=== PATIENT | male | born 1975 | race Caucasian/White ===

== ENCOUNTER 2023-03-30 10:26 | Emergency (ER) | payer OTHER, MEDICAID, SELFPAY ==
[2023-03-30 10:40] VITALS: BP 171/110; PULSE 80; RESP 18; TEMP 36.6; O2SAT 98
--- NOTE | 2023-03-30 10:41 | ED.GENADULT ---
HPI - General Adult General Chief complaint: Back Pain/Injury Stated complaint: Back Pain/Right Arm Pain Time Seen by Provider: 03/30/23 10:43 Source: patient and RN notes reviewed Mode of arrival: ambulatory Limitations: no limitations History of Present Illness HPI narrative: 47-year-old male presents to the [facility] with low back pain and right arm pain. Low back pain started months ago. Denies any loss retention of bowel or bladder. Denies any saddle anesthesia. Walks with a normal gait. Pain does not radiate down his leg. Right arm pain started about 2 weeks ago, decreased range of motion, tenderness to the radial aspect. No swelling or bruising noted. Patient states 2 weeks ago he was picking up a box when he felt a discomfort in the lateral aspect of the right antecubital area. Denies any trauma. Related Data Home Medications Medication Instructions Recorded Confirmed citalopram 40 mg tablet 40 mg PO DAILY 03/30/23 03/30/23 hydrochlorothiazide 25 mg tablet 25 mg PO DAILY 03/30/23 03/30/23 lisinopril 40 mg tablet 40 mg PO DAILY 03/30/23 03/30/23 Allergies Allergy/AdvReac Type Severity Reaction Status Date / Time NKDA Allergy Mild Uncoded 06/02/09 19:53 Review of Systems Review of Systems: All systems reviewed & are unremarkable except as noted in HPI and below Constitutional: Constitutional: Reports no additional constitutional complaints Eyes: Eyes: Reports no additional eye complaints ENT: Reports system reviewed and no additional complaints, except as documented Cardiovascular: Cardiovascular: Reports no additional cardiovascular complaints, Denies chest pain and Denies dyspnea Respiratory: Respiratory: Reports no additional respiratory complaints, Denies chest congestion, Denies cough and Denies dyspnea Gastrointestinal: Gastrointestinal: Reports no additional gastrointestinal complaints, Denies abdominal pain, Denies nausea and Denies vomiting Musculoskeletal: Musculoskeletal: Reports as per HPI, Reports back pain and Reports arthralgias Integumentary/Breasts: Skin/Breast: Reports system reviewed and no additional complaints, except as docu Neurologic: Reports system reviewed and no additional complaints, except as documented Psychiatric: Psychiatric: Reports no additional psychiatric complaints Allergic/Immunologic: Allergic/Immunologic: Reports no additional allergic/immunologic complaints [facility] Family History Family History Other Diabetes mellitus Family history of arthritis Social History Social History Alcohol intake: current Comments At the time of my signature, I reviewed and agree with the nursing past medical, surgical, social, and family history. There is no relevant family history pertinent to the patient complaint. Exam Const: General: cooperative, healthy appearing, comfortable, no acute distress, well developed, alert and well nourished Nutritional Appearance: well nourished and obese Orientation/consciousness: patient oriented x3 Limitations: no limitations HENMT: Head: normal to inspection Ears: hearing grossly normal bilaterally and external ears normal Face/Nose/Sinus: Normal external nose present, Normal nares present, Normal nasal mucous membranes and turbinates present and normal facial exam Face and sinus: normal facial exam Mouth: Yes lip normal Eyes: General: appearance normal, both eyes and all related structures Alignment and Position: alignment normal Periorbital: periorbital findings normal Pupils: Equal, round and reactive pupils present EOM: EOMs intact bilaterally Neck: Neck: normal visual inspection, full ROM, no lymphadenopathy and no meningeal signs Chest: Chest palpation & inspection: normal inspection of the chest Resp: Effort & Inspection: normal respiratory effort and able to speak in complete sentences 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
== END 2023-03-30 11:13 | disposition home or self-care (01) ==
PROVIDERS: Emergency Provider Nurse Practitioner
DX: M77.8 Other enthesopathies, not elsewhere classified (principal); S39.012A Strain of muscle, fascia and tendon of lower back, initial encounter; X58.XXXA Exposure to other specified factors, initial encounter; I10 Essential (primary) hypertension
CPT/HCPCS: 99213; G0463

== ENCOUNTER 2024-11-07 15:09 | Emergency (ER) | payer OTHER, SELFPAY ==
--- NOTE | 2024-11-07 15:19 | ED_ITS ---
HPI - General Adult General Chief complaint: Skin/Abscess/Foreign Body Stated complaint: Skin Sore/Right Arm Source: patient Mode of arrival: ambulatory Limitations: no limitations History of Present Illness HPI narrative: 48 y/o male presented for abscess to right arm due to IVDA. Onset over 2 weeks. Pt completed a week of Bactrim 6 days ago; but denies improvement. denies decreased ROM to the arm,numbness, tinglign or weakness. Says he continues to use IV drugs but not to that area. Just prior to arrival he snorted Fentanyl, stating he will try to avoid IV use. Plans to go to rehab in 4 days. Denies n/v/d/f/c. Applied PRID to the wound. Related Data Home Medications ?Medication ?Instructions ?Recorded ?Confirmed ?Last Taken ?Type citalopram 40 mg tablet 40 mg PO DAILY 03/30/23 03/30/23 Unknown History hydrochlorothiazide 25 mg tablet 25 mg PO DAILY 03/30/23 03/30/23 Unknown History lisinopril 40 mg tablet 40 mg PO DAILY 03/30/23 03/30/23 Unknown History Allergies Allergy/AdvReac Type Severity Reaction Status Date / Time No Known Allergies Allergy Verified 11/07/24 15:25 Review of Systems 2 Review of Systems: CONSTITUTIONAL: Denies body aches, fever, chills, or sweats. EYES: Denies visual changes, redness, or discharge. ENT: Denies rhinorrhea, congestion CARDIOVASCULAR: Denies chest pain, palpitations, or edema. RESPIRATORY: Denies cough or dyspnea. GASTROINTESTINAL: Denies abdominal pain, nausea, vomiting, or diarrhea. SKIN: Reports abscess right arm MUSCULOSKELETAL: Denies back pain, joint pain, or myalgia. NEUROLOGIC: Denies headache, numbness, tingling, or weakness. [facility] Family History Family History Other Diabetes mellitus Family history of arthritis Social History Social History (Updated 11/07/24 @ 15:39 by Daphne Campos APRN) Alcohol intake: current Substance use type: IV drugs Last use: 11/07/24; snorted fentayl Comments At time of signature, I have reviewed and agree with nursing past medical, surgical, social and family history unless otherwise noted. Please see nursing chart for further information. There is no relevant family history pertinent to the presenting complaint Exam 2 Narrative: GENERAL: chronically ill-appearing EYES: conjunctivae clear, and EOMI. ENT: Mucous membranes moist. SKIN: Warm, dry. Right AC area ulnar aspect with 6cm area of induration, and 2cm raised center abscess. minimal fluctuance, serous drainage. Warm and tender. No streaking. Full ROM to the elbow. Pulses palpable and equal bilaterally. Cap refill < 3 seconds to right hand. Track larson noted to bilateral forearms. NEURO: Alert and oriented x3. Extrem: Elbow/forearm/wrist images: 1. area of induration Course Course Emergency Course: Patient is aware of diagnosis, understands and agrees to treatment plan. Anticipatory guidance given. Patient agrees to follow-up as directed and is aware of reasons to seek care at the emergency department. Portions of this record may have been created with voice recognition software Level of Care: Express Care Visit Vital Signs Vital signs: Vital Signs Temperature 97.7 F 11/07/24 15:51 Pulse Rate 98 11/07/24 15:51 Respiratory Rate 16 11/07/24 15:51 Blood Pressure 163/100 H 11/07/24 15:51 Pulse Oximetry 100 11/07/24 15:51 Oxygen Delivery Room Air 11/07/24 15:51 Temperature 97.7 F 11/07/24 15:51 Pulse Rate 98 11/07/24 15:51 Respiratory Rate 16 11/07/24 15:51 Blood Pressure 163/100 H 11/07/24 15:51 Pulse Oximetry 100 11/07/24 15:51 Oxygen Delivery Room Air 11/07/24 15:51 Reviewed Procedures Abscess I/D right arm: Abcess I&D Additional Comments: Attempted needle aspiration to the fluctuant area of the Right AC. Site cleansed with iodine. Puncture site made with #18g needle to area of most fluctuance. Blood was noted. No purulent drainage noted. Pt tolerated well. No complications. Dressing and coban applied per RN. Medical Decision Making MDM Narrative Medical decision making narrative: Discussed physical exam findings c/w abscess to Right AC due to IVDA. No purulent drainage with needle aspiration. Pt failed outpt abx therapy and is advised ER transfer. He refuses stating [place] [address] and does not have time to wait. will send abx at this time. The patient is AA&Ox3. The patient has demonstrated concrete thinking/reasoning, has maintained an patient safety tech/reasonable conversation, appears to have intact insight/judgment/reason and therefore has capacity to make decisions. Given the patients presentation, we communicated our concern for cellulitis/abscess to right arm in laymans terms. The patient verbalized an understanding. The patient is aware the evaluation is incomplete & many troublesome conditions have not been r/o. We have discussed the need for further ED evaluation. We have discussed the range of possible dx, potential testing & treatment options.Our discussions included the potential outcomes of leaving AMA, including worsening of their condition, becoming permanently disabled/in pain/critically ill, or . Despite these efforts, we were unable to convince the pt to go to the ER. We have attempted to offer tx/rx/guidance for any dangerous conditions which are most likely and/or dangerous. We have answered all questions and have implored the patient to go to ER [facility] to complete the w/u. A staff member witnessed the patient consenting to AMA. Differential Diagnosis Differential Diagnosis: Viral exanthema, contact dermatitis, allergic dermatitis, eczema, urticaria, insect bites, impetigo, tinea, folliculitis Vital Signs Vital Signs: Vital Signs Temperature 97.7 F 11/07/24 15:51 Pulse Rate 98 11/07/24 15:51 Respiratory Rate 16 11/07/24 15:51 Blood Pressure 163/100 H 11/07/24 15:51 Pulse Oximetry 100 11/07/24 15:51 Oxygen Delivery Room Air 11/07/24 15:51 Temperature 97.7 F 11/07/24 15:51 Pulse Rate 98 11/07/24 15:51 Respiratory Rate 16 11/07/24 15:51 Blood Pressure 163/100 H 11/07/24 15:51 Pulse Oximetry 100 11/07/24 15:51 Oxygen Delivery Room Air 11/07/24 15:51 Discharge Plan Discharge Clinical Impression: Cellulitis of arm, right Patient Disposition: Left Against Medical Advice Condition: Stable Instructions: Cellulitis (ED) Additional Instructions: You were advised to transfer to the ER and you decline at this time. You were made aware of the risk of refusal including worsening of your condition, permanent disability, and . Report to the ER immediately by calling 911 for any worsening symptoms. Keep the area clean and dry - cleanse with warm water and mild soap and allow to fully dry. Ok to apply neosporin to the site Keep it covered if draining Tylenol for pain Watch for worsening symptoms including pain, redness, swelling, streaking, pus/drainage, fever. Go to the ER with any of these symptoms or concerns. Follow up with primary care provider Patient Language: Macanese Prescriptions: New cephalexin 500 mg capsule 500 mg PO Q6H 7 Days Qty: 28 0RF doxycycline hyclate 100 mg tablet 100 mg PO BID 7 Days Qty: 14 0RF No Action citalopram 40 mg tablet 40 mg PO DAILY hydrochlorothiazide 25 mg Tablet 25 mg PO DAILY lisinopril 40 mg Tablet 40 mg PO DAILY methylprednisolone [Medrol (Fahad)] 4 mg tablets,dose pack See Rx Instructions PO .COMPLEX Qty: 21 0RF Rx Instructions: orally per package directions baclofen 10 mg tablet 10 mg PO TID PRN (Reason: muscle pain) Qty: 10 0RF Follow-up/Referrals: PHYSICIAN,PHYSICAL SCIENCE AIDE [Primary Care Provider] - Time of Disposition: 15:47
[2024-11-07 15:51] VITALS: BP 163/100; PULSE 98; RESP 16; TEMP 36.5; O2SAT 100
--- OUTSIDE RECORDS SUMMARY | 2024-11-07 16:21 | XMS_ITS | Patient Health Summary ---
Author Organization [facility] Address [address] [place] [address] Care Team Providers Care Bulk Mail Clerk Name Role Phone Unavailable Primary Care Provider Unavailabl e Note from [facility],non-owned Affiliates and Associated Physician Practices is amultiple site organization consisting of ambulatory clinics and hospital sitesin [place], [place] and [place]. This disclosure is being madepursuant to the Care Everywhere program and may not contain all information available regarding this patient. Last updated 18.[facility] Allergies No known active allergies Medications * Be aware that medications may not be up to date on this document. Alwaysverify current medications with the patient. * dextromethorphan-guaiFENesin (ROBITUSSIN COUGH/CHEST DM MAX) 10-200 MG/5ML liquid(Started 06/24/2016) Take 5 mL by mouth every 6 hours as needed for Cough Reasons: Cough Social History Tobacco Use Types Packs/Day Years Used Date Smoking Tobacco: Every Day Sex and Gender Information Value Date Recorded Sex Assigned at Not on file Gender Identity Not on file Sexual Orientation Not on file Last Filed Vital Signs Vital Sign Reading Time Taken Comments Blood Pressure 134/90 06/24/2016 5:04 PM CDT Pulse 77 06/24/2016 5:04 PM CDT Temperature 36.4 C (97.6 F) 06/24/2016 5:04 PM CDT Respiratory Rate 18 06/24/2016 5:04 PM CDT Oxygen Saturation 96% 06/24/2016 5:04 PM CDT Inhaled Oxygen Concentration - - Weight 131.5 kg (290 lb) 06/24/2016 5:04 PM CDT Height 182.9 cm (6') 06/24/2016 5:04 PM CDT Body Mass Index 39.33 06/24/2016 5:04 PM CDT Procedures * SARS-COV-2 (COVID-19) IN HOUSE(Performed 02/01/2020) * INFLUENZA A+B - POINT OF CARE (AMB)(Performed 06/24/2016) Performed for Acute nasopharyngitis (common cold) * STREP A SCREEN - POINT OF CARE (AMB) STL(Performed 06/24/2016) Performed for Acute nasopharyngitis (common cold) Results * SARS-COV-2 (COVID-19) IN HOUSE (02/01/2020 1:37 AM CDT) COVID-19 PCR Not detected Not detected, Invalid 02/01/2020 10:46 PM CDT [facility] Microbiology SPECIMEN FROM NASOPHARYNGEAL STRUCTURE / Unknown Collection / Unknown 02/01/2020 1:37 AM CDT 02/01/2020 12:32 PM CDT Narrative [facility] - 02/01/2020 10:46 PM CDT This Real Time RT-PCR assay was developed and its performance characteristics determined by [facility]. This test has been authorized by the Food and Drug administration (FDA)under an Emergency Use Authorization (EUA). This test has been validated in accordance with the FDA's guidance document Policy for Diagnostic Testing in Laboratories Certified to perform High Complexity Testing under CLIA prior to Emergency Use Authorization for Coronavirus Disease-2019 during the Public Health Emergency issued on November 02, 2019. FDA independent review of this validation is pending. This test is only authorized for the duration of time the declaration that circumstances exist justifying the authorization of emergency use of in vitro diagnostic tests for detection of SARS-CoV-2 virus and/or diagnosis of COVID-19 infection under section 564(b)(1) of the Act, 21 U.S.C 360bbb-3 (b)(1), unless the authorization is terminated or revoked sooner. Thomas Berger MD LAB - MICROBIOLOGY ORDERABLES [facility] [address] [place] [address], [facility] [phone] * STREP A SCREEN - POINT OF CARE (AMB) STL (06/24/2016) Strep A Rapid POCT Negative Negative Strep A Internal Control Present Lot # [id number] Expiration Date 01/06/2018 Throat ENTIRE THROAT (SURFACE REGION OF NECK) / Unknown 06/24/2016 Elena Cunha APRN-[facility] - POINT OF CA RE ORDERABLES * INFLUENZA A+B - POINT OF CARE (AMB) (06/24/2016) Influenza A Antigen Rapid Negative Negative Influenza B Antigen Rapid Negative Negative Influenza Internal Control negative NEGATIVE - POSITIVE Influenza Lot Number [id number] Influenza Expiration Date ,017 Other NASOPHARYNGEAL SWAB / Unknown 06/24/2016 Elena Cunha APRN-[facility] - POINT OF CA RE ORDERABLES
--- OUTSIDE RECORDS SUMMARY | 2024-11-07 16:21 | XMS_ITS | Referral Summary ---
Author Organization [facility] Address [address] [place] [address] Care Team Providers Care Customer Contact Specialist Name Role Phone No, Physician Primary Care Provider [phone] Allergies No known active allergies Medications ketorolac (TORADOL) 10 mg tablet take 1 tablet by oral route every 6 hours as needed for up to 5 days total use 0 0 7 Active albuterol HFA (PROVENTIL HFA) 90 mcg/actuation inhaler inhale 2 puff by inhalation route every 4 - 6 hours as needed 0 Inhaler 0 7 Active naproxen (NAPROSYN,ALEVE ) 500 mg tablet take 1 tablet by oral route 2 times every day with food 0 0 7 Active dexamethasone (dexamethasone) 1 mg/mL drops take 0.5 milliliter by oral route 2 times every day 0 0 7 Active HYDROcodone-ciara taminophen (NORCO) 5-325 mg per tabletIndicatio ns:written Rx given to pt at appt today Take 1 tablet by mouth every 6 (six) hours as needed (for pain). 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 Gender Identity Not on file Sexual Orientation Not on file Last Filed Vital Signs Vital Sign Reading Time Taken Comments Blood Pressure 140/88 06/30/2017 11:08 AM CDT Pulse 76 06/30/2017 11:08 AM CDT Temperature - - Respiratory Rate - - Oxygen Saturation 92% 06/25/2012 8:00 AM CDT Inhaled Oxygen Concentration - - Weight 113.4 kg (250 lb) 06/30/2017 11:08 AM CDT Height 182.9 cm (6') 06/30/2017 11:08 AM CDT Body Mass Index 33.91 06/30/2017 11:08 AM CDT Plan of Treatment Not on file Insurance [facility] Care Teams Customer Contact Specialist Relationship Specialty Start Date End Date No, Physician PCP - General 02/27/17
--- OUTSIDE RECORDS SUMMARY | 2024-11-07 16:21 | XMS_ITS | Continuity of Care Document ---
Author Organization [facility] Address [address] [facility] [place] [address] Phone Care Team Providers Care Software Administrator Name Role Phone Jim Asher MD Unavailable Unavailable Allergies, Adverse Reactions, Alerts Substance Reaction Status Criticality No Known Allergies Active No Inform ation Medications Medication Instructions Dosage Effective Dates (start - stop) Status Comments ibuprofen 800 mg tablet take 1 tablet (800MG) by oral route every 6 - 8 hours with food 800 MG - Active Vicodin 5 mg-500 mg tablet take 1 tablet by oral route every 4 - 6 hours as needed for pain - Active avoid driving or operate machines, max 3/24 hour Procedures Procedure Date OFFICE/OUTPATIENT VISIT, EST OFFICE/OUTPATIENT VISIT, EST Advance Directives Directive Yes / No Effective Date File Name No Information Encounters Encounter Description Practice Location Reason(s) For Visit Diagnoses Date Provider Providers Copied on Encounter OFFICE/OUTPA TIENT VISIT, EST [facility], [address], [id number], [place] tel:[phone] [facility] foot pain (chief complaint) Dietary surveillance and counselingFracture of unspecified bone(s) of foot (except toes), closed [address] [place], [id number] , [place]. tel:[phone] Referring Provider: Jim Asher [address] [place], [place], [id number]. tel:[phone] OFFICE/OUTPA TIENT VISIT, [facility], [address] [place], [id number], tel:[phone] [facility] foot pain (chief complaint) Dietary surveillance and counselingPain in joint involving ankle and footDECREASED LIBIDO 0 [address], [address], [place], [place], [id number] , [place]. tel:[phone] Referring Provider: Jim Asher, [address] [facility] [address], [place], [place], [id number]. tel:[phone] Family History Family Member Type Diagnosis Age At Onset Mother Problem (finding) Hyperlipidemia Father Problem (finding) Diabetes mellitus Mother Problem (finding) Hypertension Father Problem (finding) Hyperlipidemia Father Problem (finding) Hypertension Payers Payer name Insurance type Covered green party ID Authoriza tion(s) No Information Social History Type Description Quantity Date Captured Comments Alcohol Use Details Caffeine Use Details Unknown Tobacco Use Status No Information Smoking Status Current every day smoker Smoking Tobacco Use Details Cigarette: No Details Available Cigarette: No Details Available Sex Male Vital Signs Date / Time: Height Weight BMI Pulse Rate Blood Pressure Temperature Respiratory Rate Body Surface Area Head Circumference BMI percentile Pulse Ox Inhaled Ox 12:38 PM 72.00 in 315.50 lbs 42.7 8 kg/m eter (2) 88 /min 132/88 mm[Hg] 97.6 F 17 /min Chief Complaint And Reason For Visit From encounter dated '06/21/2012 11:30'. foot pain (chief complaint) Plan Of Treatment Date Type Action Status Goal Tobacco cessation counseling completed Goal Tobacco cessation counseling completed Referral Ordered: Referral: Ortho Surg. Evaluate and treat. ordered Referral Ordered: FOOT XRAY, TWO VIEW Right foot ordered History Of Present Illness Encounter Date Complaint History Of Prese nt Illness No Information Instructions Date Instruction Additional Infor mation Dietary counseling Related to Di etary surveillance counseling Decrease caloric intake Related to Dietary surveillance counseling Dietary counseling Related to Di etary surveillance counseling Decrease caloric intake Related to Dietary surveillance counseling Assessments Type Assessment Date No Information Mental Status Date Cognitive Assessment Orientation - Winn ed to time, place, person, situation.
--- OUTSIDE RECORDS SUMMARY | 2024-11-07 16:21 | XMS_ITS | Referral Summary ---
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 This disclosure is being madepursuant to the Care Everywhere program and may not contain all information available regarding this patient. Last updated 18.[facility] Allergies No known active allergies Medications * Be aware that medications may not be up to date on this document. Alwaysverify current medications with the patient. Medication Sig Dispensed Refills Start Date End Date Status dextromethorphan-guaiF ENesin (ROBITUSSIN COUGH/CHEST DM MAX) 10-200 MG/5ML liquidIndications:Coug h Take 5 mL by mouth every 6 hours as needed for Cough Reasons: Cough 236 mL 06/24/2016 Active Social History Tobacco Use Types Packs/Day Years [...] Mass Index 39.33 06/24/2016 5:04 PM CDT Plan of Treatment Not on file
--- OUTSIDE RECORDS SUMMARY | 2024-11-07 16:21 | XMS_ITS | Clinical Summary ---
Author Organization [facility] Address [address] [place] [id number] Care Team Providers Care Waiter/Waitress Tourist Class Name Role Phone Karl Patel MD Unavailable [phone] Henrique Tijerina MD Unavailable Unavailable Jan Lynch MD Unavailable Cecil Hart Primary Care Provider Allergies Active Allergy Reactions Criticality Noted Date Comments Penicillins Hives Medium 12/14/2018 Medications hydroCHLOROthiazid e 25 MG TabletIndications: Hypertension, essential Take 1 Tablet by mouth daily. 90 Tablet 1 05/19/20 23 Active Additional Information Patient not taking.Reported on 03/24/2024 Lisinopril 30 MG TabletIndications: Hypertension, essential Take 1 Tablet by mouth daily. 90 Tablet 1 05/19/20 23 Active Additional Information Patient not taking.Reported on 03/24/2024 atorvastatin (LIPITOR) 20 MG TabletIndications: Hyperlipidemia, unspecified hyperlipidemia type Take 1 Tablet by mouth daily. 90 Tablet 3 05/30/20 23 Active Additional Information Patient not taking.Reported on 03/24/2024 meloxicam (MOBIC) 15 MG TabletIndications: Toe deformity, right Take 1 Tablet by mouth daily. 90 Tablet 3 09/28/19 24 Active Additional Information Patient not taking.Reported on 03/24/2024 traMADol (ULTRAM) 50 MG TabletIndications: History of hepatitis C,LLQ pain,Non-recurrent unilateral inguinal hernia without obstruction or gangrene,FH: diabetes mellitus Take 1 Tablet by mouth every 12 hours as needed for Severe pain. 20 Tablet 11/27/19 24 Active Additional Information Patient not taking.Reported on 03/24/2024 methylPREDNISolone (MEDROL) 4 MG Tablet 6 tabs day 1, 5 tabs day 2, 4 tabs day 3, 3 tabs day 4, 2 tabs day 5, 1 tab day 6 21 Tablet 03/24/20 24 Active sulfamethoxazole-t rimethoprim DS (BACTRIM DS, SEPTRA DS) 800-160 MG TabletIndications: Abscess of arm, right Take 1 Tablet by mouth 2 times daily for 7 days. 14 Tablet 10/28/19 25 025 Active Problems Problem Noted Date Diagnosed Date History of hepatitis C 05/19/2023 Anxiety and depression 09/25/2017 Mild intermittent asthma without complication Hyperlipidemia 09/04/2016 Hypertension, essential Resolved Problems Problem Noted Date Diagnosed Date Resolved Date Abscess of right arm 10/08/2017 019 Rhabdomyolysis 01/27/2017 12/05/2018 Dehydration 01/27/2017 12/05/2018 Headache(784.0) 01/27/2017 08/23/2017 Mononeuritis lower limb 06/20/2016 04/0 11/2018 Pain in right foot 06/20/2016 9 Hallux valgus 06/20/2016 12/05/2018 Encounters Date Type Department Care Team Description 10/28/2024 2:00 PM PASTE WORKER Urgent Care Visit [facility] [address] [place] [address] Celeste Kimble, AUTOMOBILE ENGINE ASSEMBLER, CHILD CARE ATTENDANT Abscess of arm, right (Primary Dx) Discharge Disposition: Discharged to home or Selfcare 10/28/2024 Travel from Last 3 Months Immunizations Immunization Administration Dates Next Due Covid-19, Mrna, Lnp-s, Bival ent, Moderna, 50 Mcg or 25 mcg dose 09/07/2022 Covid-19, Mrna, Lnp-s, PF, 5 0 mcg/0.25 mL dose (Moderna) 08/10/2021 Covid-19, Mrna, Lnp-s, Pf, 1 00 Mcg Or 50 Mcg Dose (MODERNA) 08/15/2021,11/30/2020,11/02/2020 Influenza Vaccine, Quadrivalent, PF 08/23/2017 Pneumococcal Vaccine Adult - 23 Valent 9 TDAP Vaccine 02/20/2017 Family History Medical History Relation Name Comments Diabetes Father Cancer Maternal Aunt Cancer Maternal Grandmother Asthma Mother Chronic Obstructive Pulmonary Disease Mother Hypertension Mother Relation Name Status Comments Father Alive Maternal Aunt Maternal Grandmother Mother Alive Social History Tobacco Use Types Packs/Day Years Used Date Smoking Tobacco: Every Day Cigarettes 1 35 Smokeless Tobacco: Never Tobacco Cessation:Ready to Q uit: Not Asked; Counseling Given: Not Answered Alcohol Use Standard Drinks/Week Comments No 0 (1 standard drink = 0.6 oz pur e alcohol) PHQ-2 Answer Date Recorded PHQ-2 Score 1 05/13/2019 Sexually Active Control Partners Comments Yes Sex and Gender Information Value Date Recorded Sex Assigned at Not on file Legal Sex Male 10:44 PM CDT Gender Identity Not on file Sexual Orientation Not on file Occupation Industry Job Start Date Job End Date unemployed Not on file 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 on file 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 file Not on file Not on file Last Filed Vital Signs Vital Sign Reading Time Taken Comments Blood Pressure 164/94 10/28/2024 2:53 PM PASTE WORKER Pulse 85 10/28/2024 2:53 PM PASTE WORKER Temperature 36.5 C (97.7 F) 10/28/2024 2:53 PM PASTE WORKER Respiratory Rate 18 10/28/2024 2:53 PM PASTE WORKER Oxygen Saturation 99% 10/28/2024 2:53 PM PASTE WORKER Inhaled Oxygen Concentration - - Weight 132.9 kg (293 lb) 09/28/2023 10:57 AM PASTE WORKER Height 185.4 cm (6' 1 ) 05/22/2023 3:15 PM CDT Body Mass Index 38.66 05/22/2023 3:15 PM CDT Plan of Treatment Health Maintenance Due Date Last Done Comments Hepatitis B Immunization (1 of 3 - 19+ 3-dose series) 1992 Colonoscopy 2018 Colorectal Cancer Screening 2018 Pneumococcal Immunization (50+ years) (2 of 2 - PCV) 12/06/2019 12/05/2018 Cologuard 11/27/2023 Immunochemical Fecal Occult Blood 11/27/2023 Lung Cancer Screening 11/27/2023 Zoster Immunization (1 of 2) 11/27/2023 Influenza Immunization (#1) 2024 08/23/2017 SARS-COV-2 Immunization ( season) 2024 09/07/2022, 08/15/2021, 08/10/2021, Additional history exists Td Immunization Every 10 Years (Adults With 1 Tdap) 02/20/2027 02/20/2017 Respiratory Syncytial Virus (RSV) Immunization (Adult) (1 - 1-dose 75+ series) 2048 Pneumococcal Immunization Combined Discontinued 12/05/2018 Meningococcal Immunization (ACWY) Aged Out No longer eligible based on patient's age to complete this topic Rotavirus Immunization Aged Out No lo nger eligible based on patient's age to complete this topic Insurance MEDICAID [place] Care Teams Waiter/Waitress Tourist Class Relationship Specialty Start Date End Date Cecil Hart PAC [address] [place] [id number] PCP - General Physician Carbon Printer 05/19/23 Karl Patel MD [address] [place] [address] Consulting Physician Orthopaedic Surgery 08/23/17 Henrique Tijerina MD [address] [place] [address] Consulting Physician Addiction Medicine 12/05/18 Jan Lynch MD [address] [facility] [place] [address] Consulting Physician General Surgery 05/15/23
--- OUTSIDE RECORDS SUMMARY | 2024-11-07 16:21 | XMS_ITS | Encounter Summary ---
Author Organization [facility] Address [address] [place] [address] Care Team Providers Care New Accounts Banking Representative Name Role Phone Unavailable Primary Care Provider Unavailabl e Encounter Details Date Type Department Care Team (Late st Contact Info) Description 02/01/2020 Lab Requisition [facility] [address] [place] [address] Thomas Berger MD Social History Tobacco Use Types Packs/Day Years Used Date Smoking Tobacco: Every Day Sex and Gender Information Value Date Recorded Sex Assigned at Not on file Gender Identity Not on file Sexual Orientation Not on file documented as of this encounter Plan of Treatment Not on file documented as of this encounter Procedures Procedure Name Priority Date/Time Associated Diagnosis Comments SARS-COV-2 (COVID-19) IN HOUSE Routine 02/01/2020 1:37 AM CDT documented in this encounter Results * SARS-COV-2 (COVID-19) IN HOUSE (02/01/2020 1:37 AM CDT) COVID-19 PCR Not detected Not detected, Invalid 02/01/2020 10:46 PM CDT [facility] Microbiology SPECIMEN FROM NASOPHARYNGEAL STRUCTURE / Unknown Collection / Unknown 02/01/2020 1:37 AM CDT 02/01/2020 12:32 PM CDT Narrative [facility] - 02/01/2020 10:46 PM CDT This Real Time RT-PCR assay was developed and its performance characteristics determined by [facility]. This test has been authorized [...] Thomas Berger MD LAB - MICROBIOLOGY ORDERABLES [facility] [address] [place] [address], [facility] [phone] documented in this encounter Visit Diagnoses Not on filedocumented in this encounter Additional Health Concerns Infection Onset Date Last Indicated Resolved Time COVID-19 Under Investigation 02/01/2020 02/01/2020 02/01/2020 10:46 PM CDT documented as of this encounter
--- OUTSIDE RECORDS SUMMARY | 2024-11-07 16:21 | XMS_ITS | Clinical Summary ---
Author Organization [facility] Address [address] [place] [address] Care Team Providers Care Log Handling Equipment Operator Name Role Phone No, Physician Primary Care Provider [phone] Allergies No known active allergies Medications ketorolac [...] pain Current smoker 11/11/2016 Overview (01/27/2017): Smoker Medical History Medical History Date Comments Hx Other Medical 12-06-16 Right AC resection with anterior acromiopla; Comments: QUINCY 12/19/2016 - Family History Medical History Relation Name Comments Other Other Family history of diabetes and hypertension.; Relation Name Status Comments Other Social History Tobacco Use Types Packs/Day Years Used Date Smoking Tobacco: Every Day Smokeless Tobacco: Never Sex and Gender Information Value Date Recorded Sex Assigned at Not on file Legal Sex 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
--- OUTSIDE RECORDS SUMMARY | 2024-11-07 16:21 | XMS_ITS | Clinical Summary ---
Author Organization [facility] Address [address] [place] [address] Care Team Providers Care Aluminum Molding Machine Operator Name Role Phone Unavailable Primary Care Provider Unavailabl e Source Comments [facility],non-owned Affiliates and Associated Physician Practices is amultiple site organization consisting of ambulatory clinics and hospital sitesin [place], [place], [place] and [place]. This disclosure is being madepursuant to the Care Everywhere program and may not contain all information available regarding this patient. Last updated 18.[facility] [employer] Allergies No known active allergies Medications * [...] 06/24/2016 5:04 PM CDT Plan of Treatment Health Maintenance Due Date Last Done Comments COLOGUARD (AGES 45-75) - COL ON CA SCREENING 1973 COLON MONITORING 1973 COLONOSCOPY - COLON CA SCREENING 1973 CT COLONOGRAPHY - COLON CA SCREENING 1973 Colorectal Cancer Screening 1973 FIT - COLON CA SCREENING 1973 FLEX SIG - COLON CA SCREENING 1973 LIPID TESTING 1973 HIV SCREENING 1988 HEPATITIS C SCREENING 11/22/1991 DTAP/TDAP/TD VACCINES (1 - Tdap) 1992 HEPATITIS B VACCINE (1 of 3 - 19+ 3-dose series) 1992 PNEUMOCOCCAL VACCINE (1 of 2 - PCV) 1992 PNEUMOCOCCAL VACCINE 50+ (1 of 1 - PCV) 11/27/2023 ZOSTER VACCINE (1 of 2) 11/27/2023 COVID-19 VACCINE (1 - 2023-2 5 season) 2024 INFLUENZA VACCINE (#1) 2024 08/23/2017 DEPRESSION SCREENING 09/04/2024 HIB VACCINE Aged Out No longer eligi ble based on patient's age to complete this topic HPV VACCINE Aged Out No longer eligi ble based on patient's age to complete this topic MENINGOCOCCAL (Group B) VACCINE Aged Out No longer eligible based on patient's age to complete this topic MENINGOCOCCAL VACCINE Aged Out No eduardo paco eligible based on patient's age to complete this topic
--- OUTSIDE RECORDS SUMMARY | 2024-11-07 16:26 | XMS_ITS | Continuity of Care Document ---
Author Organization [facility] Address [address] [facility] [place] [address] Phone Care Team Providers Care Donation Specialist Name Role Phone Jim Asher MD Unavailable Unavailable Allergies, Adverse Reactions, Alerts Substance Reaction Status Criticality No Known Allergies Active No Inform ation Medications Medication Instructions Dosage Effective Dates (start - stop) Status Comments Vicodin 5 mg-500 mg tablet take 1 tablet by oral route every 4 - 6 hours as needed for pain - Active avoid driving or operate machines, max 3/24 hour ibuprofen 800 mg tablet take 1 tablet (800MG) by oral route every 6 - 8 hours with food 800 MG - Active Procedures Procedure Date OFFICE/OUTPATIENT VISIT, EST OFFICE/OUTPATIENT VISIT, EST Advance Directives Directive Yes / No Effective Date File Name No Information Encounters Encounter Description Practice Location Reason(s) For Visit Diagnoses Date Provider Providers Copied on Encounter OFFICE/OUTPA TIENT VISIT, EST [facility], [facility] [place], [id number], [place] tel:[phone] [facility] foot pain (chief complaint) Dietary surveillance and counselingFracture of unspecified bone(s) of foot (except toes), closed [address], [place], [id number] , [place]. tel:[phone] Referring Provider: Jim Asher [address], [place], [id number]. tel:[phone] OFFICE/OUTPA TIENT VISIT, [facility], [address] [place], [place], [id number], tel:[phone] [facility] foot pain (chief complaint) Dietary surveillance and counselingPain in joint involving ankle and footDECREASED LIBIDO 0 [address], [place], [place], [id number] , [place]. tel:[phone] Referring Provider: Jim Asher, [address] [facility] [address], [place], [place], [id number]. tel:[phone] Family History Family Member Type Diagnosis Age At Onset Mother Problem (finding) Hyperlipidemia Father Problem (finding) Diabetes mellitus Mother Problem (finding) Hypertension Father Problem (finding) Hyperlipidemia Father Problem (finding) Hypertension Payers Payer name Insurance type Covered democrat ID Authoriza tion(s) No Information Social History [...] Mental Status Date Cognitive Assessment Orientation - [place] ed to time, place, person, situation.
== END 2024-11-07 15:54 | disposition left against medical advice (07) ==
PROVIDERS: Emergency Provider Nurse Practitioner Family
DX: T80.29XA Infection following other infusion, transfusion and therapeutic injection, initial encounter (principal); L03.113 Cellulitis of right upper limb; F11.10 Opioid abuse, uncomplicated
CPT/HCPCS: 10060; 99213; G0463

== ENCOUNTER 2024-11-19 09:49 | Emergency (ER) | payer OTHER, SELFPAY ==
[2024-11-19] VITALS (7 sets, daily range): BP systolic 128–158; BP diastolic 77–98; PULSE 56–96; RESP 14–20; TEMP 36.6; O2SAT 96–100
--- NOTE | ~2024-11-19 | XR_ITS ---
XR chest 2V Ordering provider: Verna Cuenca History: 48 years Male with . CHEST PAIN RT SIDE RADIATES DOWN RT ARM, ARM NUMB 3 DAYS . Comparison: December 09, 2011 FINDINGS: MEDIASTINUM: The cardiac silhouette is not enlarged. LUNGS: No infiltrates, effusions or pneumothorax. OTHER: No free air under the diaphragm. Degenerative changes of the spine. IMPRESSION: No acute cardiopulmonary pathology. Reviewed, dictated and finalized at location A.
--- NOTE | ~2024-11-19 | CT_ITS ---
CTA chest PE protocol Ordering provider: Hitesh Ann MD History: 48 years Male with . Chest pain, IV drug use . Comparison: None. Technique: CT angiogram chest was performed following timed intravenous injection of contrast. Thin s lice axial images and reformatted coronal images were obtained. Three dimensional reformatted images of the chest were also obtained using a [employer] workstation. . Automated exposure control and iterati ve reconstruction technique were employed. The dose-length product was 537.04 mGy-cm. 100 mL Omnipaqu e 350 was given IV. Findings: PULMONARY ARTERIES: No pulmonary embolus. VISUALIZED THORACIC INLET: Normal. MEDIASTINUM: Aorta/coronary arteries: Mild atheromatous disease. Heart/other: The heart is not enlarged. Lymph nodes: No mediastinal or hilar adenopathy. LUNGS: No pulmonary nodules or masses. No infiltrates or effusions. No pneumothorax. Dependent atelectatic c hanges. 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 There evaluation advised. Otherwise, the visualized upper abdomen is normal. MUSCULOSKELETAL: Soft tissues: The superficial soft tissues are normal. Bones: Age appropriate degenerative changes of the spine. IMPRESSION: 1. No pulmonary embolism. 2. No acute cardiopulmonary pathology. 3. 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 Further evaluation advised. Reviewed, dictated and finalized at location A. IMPRESSION: 1. No pulmonary embolism. 2. No acute cardiopulmonary pathology. 3. 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 Furth er evaluation advised.
--- NOTE | ~2024-11-19 | US_ITS ---
RIGHT UPPER EXTREMITY VENOUS ULTRASOUND Ordering provider: Hitesh Ann MD History: . Evaluate for DVT of right UE, iv drug use . Comparison: None. FINDINGS: --JUGULAR: Patent and free of thrombus. Normal compressibility, phasic flow and augmentation. --SUBCLAVIAN: Patent and free of thrombus. Normal compressibility, phasic flow and augmentation. --AXILLARY: Patent and free of thrombus. Normal compressibility, phasic flow and augmentation. --BRACHIAL: Patent and free of thrombus. Normal compressibility, phasic flow and augmentation. --CEPHALIC: Patent and free of thrombus. Normal compressibility, phasic flow and augmentation. --BASILIC: Patent and free of thrombus. Normal compressibility, phasic flow and augmentation. --RADIAL: Patent and free of thrombus. Normal compressibility, phasic flow and augmentation. --ULNAR: Patent and free of thrombus. Normal compressibility, phasic flow and augmentation. IMPRESSION: Negative right upper extremity venous US. No deep vein thrombosis. Reviewed, dictated and finalized at location A.
--- NOTE | 2024-11-19 09:50 | ECG_ITS ---
Test Date: 2024-11-19 10:14:41 Measurements Intervals [place] Rate: 74 P: 95 W[place]: 167 QRS: 21 QRSD: 86 T: 48 QT: 396 QTc: 442 Interpretive Statements SINUS RHYTHM NORMAL ECG No previous ECG available for comparison Electronically Signed On 11-20-2024 12:03:10 CDT by Tani Nice M.D.
[2024-11-19 10:38] LABS: Basophils Absolute Auto 0.1 K/mm3 (0.0-0.1); Basophils Percent Auto 0.7 % (0.2-1.2); Eosinophils Absolute Auto 1.6 K/mm3 (0-0.3); Eosinophils Percent Auto 18.8 % (0-4.4); Hematocrit 40.9 % (42.0-52.0); Immature Granulocyte Absolute 0.02 K/mm3 (0.00-0.031); Immature Granulocyte Percent A 0.2 % (0-0.5); Lymphocytes Absolute Auto 1.56 K/mm3 (0.9-3.2); Lymphocytes Percent Auto 18.8 % (18.3-44.2); Mean Corpuscular HGB Conc 34.2 g/dl (32-36); Mean Corpuscular Hemoglobin 30.1 pg (26-34); Mean Platelet Volume 10.4 fl (7.4-10.4); Monocytes Absolute Auto 0.6 K/mm3 (0.1-0.6); Monocytes Percent Auto 6.9 % (2.6-8.5); Neutrophils Absolute Auto 4.5 K/mm3 (1.3-6.7); Neutrophils Percent Auto 54.6 % (45.5-73.1); Platelet Count Result 301 k/mm3 (150-375); Red Blood Count 4.65 M/mm3 (4.6-6.20); Red Cell Distribution Width 12.7 % (11.5-14.5); White Blood Count 8.3 K/mm3 (4.5-10.0)
--- OUTSIDE RECORDS SUMMARY | 2024-11-19 10:44 | XMS_ITS | Referral Summary ---
Author Organization [facility] Address [address] [place] [address] Care Team Providers Care Copy Reader Name Role Phone No, Physician Primary Care Provider [phone] Encounters Date Type Department Care Team Description 11/13/2024 11:56 AM CDT - 11/16/2024 12:57 PM CDT Hospital Encounter [facility] [address] [place] [id number] Amy Robles MD Sinha, Chandni, MD Opioid dependence with withdrawal (HCC) (Primary Dx) Discharge Disposition: Left Against Medical Advice 11/15/2024 Documentation [facility] [address] [place] [address] Smith Abi ELaurel 11/14/2024 Documentation [facility] [address] [place] [address] Smith Abi ELaurel 11/13/2024 [facility] Enrollment [facility] [address] [place], [place] [phone] Brit Dickson 11/13/2024 9:30 AM CDT Lab [address] [address] 11/11/2024 [facility] Initial Eligibility [facility] [address] [place], [place] [phone] Shira Hood from Last 3 Months Allergies No known active allergies Medications albuterol HFA (PROVENTIL HFA) 90 mcg/actuation inhaler inhale 2 puff by inhalation route every 4 - 6 hours as needed 0 Inhaler 0 7 Active cephalexin (KEFLEX) 500 mg capsule Take 1 capsule (500 mg total) by mouth 4 (four) times a day Active doxycycline 75 mg tablet Take 1.3333 tablets (100 mg total) by mouth 2 (two) times a day Active ketorolac (TORADOL) 10 mg tablet take 1 tablet by oral route every 6 hours as needed for up to 5 days total use 0 0 7 11/14/19 25 Discontinu ed(Therapy completed) naproxen (NAPROSYN,ALEV E) 500 mg tablet take 1 tablet by oral route 2 times every day with food 0 0 7 11/14/19 25 Discontinu ed(Therapy completed) dexamethasone (dexamethasone ) 1 mg/mL drops take 0.5 milliliter by oral route 2 times every day 0 0 7 11/14/19 25 Discontinu ed(Therapy completed) HYDROcodone-ac etaminophen (NORCO) 5-325 mg per tabletIndicati ons:written Rx given to pt at appt today Take 1 tablet by mouth every 6 (six) hours as needed (for pain). 20 tablet 7 11/14/19 25 Discontinu ed(Therapy completed) Active Problems Problem Noted Date Diagnosed Date Opioid dependence with withdrawal 11/13/2024 Shoulder pain 11/11/2016 Overview (01/27/2017): Shoulder pain Current smoker 11/11/2016 Overview (01/27/2017): Smoker Social History Tobacco Use Types Packs/Day Years Used Date Smoking Tobacco: Every Day Smokeless Tobacco: Never Personal Safety Answer Date Recorded Have you ever been in or are you currently in a harmful physical or emotional relationship or is someone making you feel afraid or unsafe? Denies 11/13/2024 Sex and Gender Information Value Date Recorded Sex Assigned at Not on file Legal Sex Male 3:06 PM [employer] Gender Identity Not on file Sexual Orientation Not on file Last Filed Vital Signs Vital Sign Reading Time Taken Comments Blood Pressure 146/110 11/16/2024 11:23 AM CDT Pulse 103 11/16/2024 11:23 AM CDT Temperature 37 C (98.6 F) 11/16/2024 11:23 AM CDT Respiratory Rate 16 11/16/2024 11:2 3 AM CDT Oxygen Saturation 98% 11/16/2024 11: 23 AM CDT Inhaled Oxygen Concentration - - Weight 107.6 kg (237 lb 3.4 oz) 025 12:30 PM CDT Height 182.9 cm (6') 11/13/2024 12:30 PM CDT Body Mass Index 32.17 11/13/2024 12:30 PM CDT Plan of Treatment Not on file Procedures Procedure Name Priority Date/Time Associated Diagnosis Comments EGFR STAT 11/15/2024 1:22 PM CDT COMPREHENSIVE METABOLIC PANEL STAT 11/15/2024 1:22 PM CDT CREATINE KINASE (CK), TOTAL STAT 11/15/2024 1:22 PM CDT DRUGS OF ABUSE SCREEN, URINE WITHOUT CONFIRMATION STAT 11/13/2024 9:10 AM CDT EGFR STAT 11/13/2024 9:07 AM CDT CBC WITHOUT DIFFERENTIAL STAT 11/13/2024 9:07 AM CDT COMPREHENSIVE METABOLIC PANEL STAT 11/13/2024 9:07 AM CDT from Last 3 Months Results * eGFR (11/15/2024 1:22 PM CDT) eGFR 78 >=60 mL/min/1. 73 m2 Comment: Interpretive Data Reference Interval Normal >/= 90 mL/min/1.73m2 Mildly decreased* 60 - 89 mL/min/1.73m2 Mildly to moderately decreased 45 - 59 mL/min/1.73m2 Moderately to severely decreased 30 - 44 mL/min/1.73m2 Severely decreased 15 - 29 mL/min/1.73m2 Kidney Failure < 15 mL/min/1.73m2 *Relative to young adult level Estimated glomerular filtration rate is determined by the 2020 CKD-EPI equation recommended by the National Kidney Foundation (A Unifying Approach to GFR Estimation: Recommendations of the NKF-ASK Task Force on Reassessing the Inclusion of Race in Diagnosing Kidney Disease, JASN 2020). The CKD-EPI equation should not be used for patients with unstable renal function and has not been validated in children and those over 70. Current interpretive data was last reviewed 2021. Blood 11/15/2024 1:22 PM CDT 11/15/2024 1:40 PM CDT Amy Robles MD LAB BLOOD ORDERABLES Final Re sult [facility] 1 [facility] [place] [address] * (ABNORMAL) Creatine kinase (CK), total (11/15/2024 1:22 PM CDT) CK 443(H) 40 - 300 Units/L Blood 11/15/2024 1:22 PM CDT 11/15/2024 1:40 PM CDT us Amy Robles MD LAB BLOOD ORDERABLES Final Re sult [facility] ([facility] 1 [facility] [place] [address] * (ABNORMAL) Comprehensive metabolic panel (11/15/2024 1:22 PM CDT) Sodium 139 135 - 145 mmol/L Potassium, pl 3.4 3.3 - 4.9 mmol/L [facility]) Chloride 106 97 - 110 mmol/L [facility]) CO2 21(L) 22 - 32 mmol/L [facility]) Anion gap 12 2 - 15 mmol/L [facility]) BUN 28(H) 6 - 25 mg/dL [facility]) Creatinine 1.14 0.80 - 1.30 mg/dL [facility]) Glucose 136 70 - 199 mg/dL [facility] ([facility]) Comment: Interpretive Data Fasting glucose >/= 126 mg/dl is diagnostic for diabetes. Fasting is defined as no caloric intake for at least 8 hours. Fasting glucose between 100 mg/dl to 125 mg/dl is diagnostic of prediabetes. In a patient with classic symptoms of hyperglycemia or hyperglycemic crisis, a random glucose >/= 200 mg/dl is diagnostic for diabetes. In the absence of unequivocal hyperglycemia, results should be confirmed by repeat testing. The classification and Diagnosis of Diabetes Diabetes Care 202; 46: S19-S40. Current interpretive data was last revised 2022. Calcium 9.5 8.5 - 10.3 mg/dL [facility]) Bilirubin, total 0.2 0.1 - 1.2 mg/dL [facility] ([facility]) Protein, pl 6.5 6.5 - 8.5 g/dL [facility]) Albumin 3.8 3.5 - 5.0 g/dL [facility]) Alk phos 73 40 - 130 Units/L [facility]) ALT 11 7 - 55 Units/L [facility]) AST 18 10 - 50 Units/L [facility]) Blood 11/15/2024 1:22 PM CDT 11/15/2024 1:40 PM CDT us Amy Robles MD LAB BLOOD ORDERABLES Final Re sult [facility] 1 [facility] [place] [address] * (ABNORMAL) Drugs of Abuse Screen, Urine without Confirmation (11/13/2024 9:10 AM CDT) Amphetamine, ur Screen Positive, presumptive (A) CutOff 500ng/mL Comment: Interpretive Data - Amphetamines: Samples containing greater than 500 ng/mL d-methamphetamine or other cross-reacting amphetamine compounds are reported as positive. Amphetamine immunoassays are subject to significant false positive rates due to cross-reactivity of non-amphetamine drugs. Confirmatory testing required for definitive results. Current Interpretive Data was last reviewed 2023. Barbiturates, ur Not Detected CutOff 200ng/mL [facility]) Comment: Interpretive Data - Barbiturates: Samples containing greater than 200 ng/mL secobarbital or other cross-reacting barbiturate compounds are reported as positive. False positive and false negative results are possible. Confirmatory testing required for definitive results. Current Interpretive Data was last reviewed 2023. Benzodiazepines, ur Screen Positive, presumptive (A) CutOff 100ng/mL [facility] ([facility]) Comment: Interpretive Data - Benzodiazepines: Samples containing greater than 100 ng/mL nordiazepam or other cross-reacting compounds are reported as positive. False positive and false negative results are possible. Confirmatory testing required for definitive results. Current Interpretive Data was last reviewed 2023. Cannabinoids, ur Screen Positive, presumptive (A) CutOff 50 ng/mL [facility]) Comment: Interpretive Data - Cannabinoids: Samples containing greater than 50 ng/mL delta-9 THC -COOH or other cross- reacting compounds are reported as positive. False positive and false negative results are possible. Confirmatory testing required for definitive results. Current Interpretive Data was last reviewed 2023. Cocaine, ur Not Detected CutOff 150ng/mL [facility] ([facility]) Comment: Interpretive Data - Cocaine: Samples containing greater than 150 ng/mL benzoylecgonine or other cross- reacting compounds are reported as positive. False positive and false negative results are possible. Confirmatory testing required for definitive results. Current Interpretive Data was last reviewed 2023. Fentanyl, Ur Screen Positive, presumptive (A) CutOff 5 ng/mL [facility] ([facility]) Comment: Interpretive Data - Fentanyl: Samples containing greater than 5 ng/mL norfentanyl, fentanyl, or other cross-reacting fentanyl compounds are reported as positive. False positive and false negative results are possible. Confirmatory testing required for definitive results. Current Interpretive Data was last reviewed 2023. Methadone, ur Not Detected CutOff 300ng/mL [facility] ([facility]) Comment: Interpretive Data - Methadone: Samples containing greater than 300 ng/mL d,l-methadone or other cross-reacting compounds are reported as positive. False positive and false negative results are possible. Confirmatory testing required for definitive results. Current Interpretive Data was last reviewed 2023. Opiates, ur Not Detected CutOff 300ng/mL [facility] ([facility]) Comment: Interpretive Data - Opiates: Samples containing greater than 300 ng/mL morphine or other cross-reacting compounds are reported as positive. False positive and false negative results are possible. Confirmatory testing required for definitive results. Current Interpretive Data was last reviewed 2023. Oxycodone, ur Not Detected CutOff 100ng/mL [facility] Comment: Interpretive Data - Oxycodone: Samples containing greater than 100 ng/mL oxycodone or other cross-reacting compounds are reported as positive. False positive and false negative results are possible. Confirmatory testing required for definitive results. Current Interpretive Data was last reviewed 2023. Phencyclidine, ur Not Detected CutOff 25 ng/mL [facility]) Comment: Interpretive Data - Phencyclidine: Samples containing greater than 25 ng/mL phencyclidine or other cross-reacting compounds are reported as positive. False positive and false negative results are possible. Confirmatory testing required for definitive results. Current Interpretive Data was last reviewed 2023. Urine Creatinine 190 mg/dL [facility] ([facility]) Comment: Interpretive Data Urine Creatinine: < 10 mg/dL is extremely dilute = or > 10 but < 20 mg/dL is dilute = or > 20 mg/dL is normal Current Interpretive Data was last revised on 2017. Urine 11/13/2024 9:10 AM CDT 11/13/2024 10:22 AM CDT Narrative [facility] - 11/13/2024 10:52 AM CDT Drug of Abuse screening is performed by immunoassay for medical purposes only. This is not to be used for Pain Management purposes. us Amy Robles MD LAB URINE ORDERABLES Final Re sult [facility] ([facility] 1 [facility] [place] [address] * eGFR (11/13/2024 9:07 AM CDT) eGFR 87 >=60 mL/min/1. 73 m2 Comment: Interpretive Data Reference Interval Normal >/= 90 mL/min/1.73m2 Mildly decreased* 60 - 89 mL/min/1.73m2 Mildly to moderately decreased 45 - 59 mL/min/1.73m2 Moderately to severely decreased 30 - 44 mL/min/1.73m2 Severely decreased 15 - 29 mL/min/1.73m2 Kidney Failure < 15 mL/min/1.73m2 *Relative to young adult level Estimated glomerular filtration rate is determined by the 2020 CKD-EPI equation recommended by the National Kidney Foundation (A Unifying Approach to GFR Estimation: Recommendations of the NKF-ASK Task Force on Reassessing the Inclusion of Race in Diagnosing Kidney Disease, JASN 2020). The CKD-EPI equation should not be used for patients with unstable renal function and has not been validated in children and those over 70. Current interpretive data was last reviewed 2021. Blood 11/13/2024 9:0 7 AM CDT 11/13/2024 9:34 AM CDT us Amy Robles MD LAB BLOOD ORDERABLES Final Re sult [facility] ([facility]) 1 [facility] [place], [place] [id number] * CBC without differential (11/13/2024 9:07 AM CDT) WBC 9.2 3.8 - 9.9 K/cumm Hgb 13.9 13.0 - 17.5 g/dL [facility] Hct 41.7 38.9 - 50.3 % [facility] Plt 328 150 - 400 K/cumm [facility]) MPV 10.2 9.1 - 12.3 fL [facility] RBC 4.65 4.30 - 5.80 M/cumm [facility]) MCV 89.7 81.3 - 96.4 fL [facility]) MCH 29.9 27.1 - 33.3 pg [facility]) MCHC 33.3 32.3 - 35.7 g/dL [facility]) RDW CV 12.5 11.1 - 14.9 % [facility]) RDW SD 41.2 35.7 - 48.1 fL [facility] NRBC abs 0.00 0.00 - 0.01 K/cumm [facility] Blood 11/13/2024 9:07 AM CDT 11/13/2024 9:34 AM CDT Amy Robles MD LAB BLOOD ORDERABLES Final Re sult [facility] ([facility] 1 [facility] [place] [address] * Comprehensive metabolic panel (11/13/2024 9:07 AM CDT) Sodium 139 135 - 145 mmol/L Potassium, pl 4.2 3.3 - 4.9 mmol/L [facility] Chloride 105 97 - 110 mmol/L [facility]) CO2 23 22 - 32 mmol/L [facility] Anion gap 11 2 - 15 mmol/L [facility]) BUN 16 6 - 25 mg/dL [facility]) Creatinine 1.04 0.80 - 1.30 mg/dL [facility]) Glucose 100 70 - 199 mg/dL [facility]) Comment: Interpretive Data Fasting glucose >/= 126 mg/dl is diagnostic for diabetes. Fasting is defined as no caloric intake for at least 8 hours. Fasting glucose between 100 mg/dl to 125 mg/dl is diagnostic of prediabetes. In a patient with classic symptoms of hyperglycemia or hyperglycemic crisis, a random glucose >/= 200 mg/dl is diagnostic for diabetes. In the absence of unequivocal hyperglycemia, results should be confirmed by repeat testing. The classification and Diagnosis of Diabetes Diabetes Care 202; 46: S19-S40. Current interpretive data was last revised 2022. Calcium 9.3 8.5 - 10.3 mg/dL [facility]) Bilirubin, total <0.2 0.1 - 1.2 mg/dL [facility]) Protein, pl 7.0 6.5 - 8.5 g/dL [facility]) Albumin 3.9 3.5 - 5.0 g/dL [facility]) Alk phos 79 40 - 130 Units/L [facility]) ALT 11 7 - 55 Units/L [facility] AST 14 10 - 50 Units/L [facility]) Blood 11/13/2024 9:07 AM CDT 11/13/2024 9:34 AM CDT us Amy Robles MD LAB BLOOD ORDERABLES Final Re sult [facility] ([facility] 1 [facility] [place] [address] from Last 3 Months Insurance [facility] [employer] [facility] Advance Directives For more information, please contact: [phone] * Full Code (Latest Code Status on File) Date Activated Date Inactivated Comments 11/13/2024 1:06 PM 11/16/2024 5:03 PM Care Teams Copy Reader Relationship Specialty Start Date End Date No, Physician PCP - General 02/27/17
--- OUTSIDE RECORDS SUMMARY | 2024-11-19 10:44 | XMS_ITS ---
Author Organization [facility] Address [address] [place] [address] Care Team Providers Care General Engineering Teacher Name Role Phone Rosita Garces Primary Care Provider [phone] Erma Gustafson Unavailable REASON FOR VISIT MRU aT Social History PRAPARE Question Answer Notes Date Completed/Updated: 11/18/2024 What is your current housing situation? I have h ousing Are you worried about losing your housing? No What is the highest level of school that you have finished? More than high school What is your current work situation? Oth erwise unemployed but not seeking work (ex. 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 Check all that apply I do not have problems meeting my needs Has lack of transportation k ept you from medical appointments, meetings, work or from getting things needed for daily living? No How often do you see or talk to people that you care about and feel close to? (For example: talking to friends on the phone, visiting friends or family, going to mandaeism or club meetings) More than 5 times a week How stressed are you? Stress is when someone feels tense, nervous, anxious, or can\t sleep at night because their mind is troubled Very much In the past year have you sp ent more than 2 nights in a row in a long-term, penitentiary, care home center, or juvenile correctional facility? No Do you feel physically and e motionally safe where you currently live? Yes In the past year, have you b een afraid of your partner or ex-partner? No Are you a refugee? I choose not to answer this q uestion What country are you from? I choose not to answe r this question PRAPARE Score: 4 Problems Problem Type SNOMED Code ICD Code Onset Dates Problem Status W/U Status Risk Notes Problem Anxiety (19506924) Anxiety (F41.9) Active confirmed Encounters Encounter Location Date Provider Diagnosis [facility] [address] [place] [address] 11/18/2024 Erma Gustafson Opioid use disorder F11.99 and Anxiety F41.9 Assessments Encounter Date Diagnosis (ICD Code) Assessment Notes Treatment Notes Treatment Clinical Notes Section Notes 11/18/2024 Opioid use disorder (ICD-10 - F11.99) 11/18/2024 Anxiety (ICD-10 - F41.9) 11/18/2024 Other Clinician met w ith client to assess needs for residential services. Clinician gathered information regarding historical presentation of mental health and substance use symptoms including withdrawal, HIV Risk assessment, psychiatric hospitalization history and presenting concern. Clinician conducted PHQ9 and CSSRS assessments as well as social drivers of health screening for the purposes of identifying additional service needs. Plan Of Treatment Treatment Notes Assessment Notes Other Clinician met with lilli lyons to assess needs for residential services. Clinician gathered information regarding historical presentation of mental health and substance use symptoms including withdrawal, HIV Risk assessment, psychiatric hospitalization history and presenting concern. Clinician conducted PHQ9 and CSSRS assessments as well as social drivers of health screening for the purposes of identifying additional service needs. Next Appt Details Follow Up: prn, Reason: Provider Name:Surjit gee, 11/20/2024 08:20:00 AM, [address], [place], [address], Provider Name:Mundo sherwood, 11/21/2024 10:20:00 AM, [address], [place], [address], Progress Notes * Edmundo AGOSTODOB:1975 (48 yo M)Acc No.[id number]:11/18/2024 Patient: Edmundo ANGEL Provider: Herb Gustafson :1975 A ge:48 Y S ex:Male Date:11/18/2024 Address:[address] [facility] Pcp:Rosita Garces Subjective: * Chief Complaints: * M RU aTBC * HPI: a TBC For Mental Health Services: Who Is Your Primary Care Provider? D o You Have A PCP? N o wants to Est PCP, D ate of last physical exam 0 11/2024. D o You Have A Psychiatric Provider? D o You Have A Psychiatric Provider? N o wants to Est Psych. D o You Have Any Other Professional Supports? D o You Have Any Other Professional Supports? Y es Drug Court.?Consent Forms Completed During Appointment C onsent Forms Completed C onsent To Treat.? A ssessment of Social Determinants of Health::: Has A PRAPARE Been Completed In The Past Year? H as a PRAPARE Been Completed In The Past Year? Y es, W as It Completed Today Using myMedScore? Y es.? D epression Screening: PHQ-9 L ittle interest or pleasure in doing things M ore than half the days, F eeling down, depressed, or hopeless M ore than half the days, T rouble falling or staying asleep, or sleeping too much M ore than half the days, F eeling tired or having little energy S everal days, P oor appetite or overeating M ore than half the days, F eeling bad about yourself or that you are a failure, or have let yourself or your family down M ore than half the days, T rouble concentrating on things, such as reading the newspaper or watching television N ot at all, M oving or speaking so slowly that other people could have noticed; or the opposite, being so fidgety or restless that you have been moving around a lot more than usual N ot at all, T houghts that you would be better off or of hurting yourself in some way S everal days (Consider Suicide Assessment Risk), T otal Score 1 2,?Interpretation M oderate Depression. S creening: [place] Suicide Severity Rating Scale (LF) D o you want to initiate with S creener form, 1 . Wish to be : Have you wished you were or wished you could go to sleep and not wake up? Y es, 2 . Suicidal Thoughts: Have you actually had any thoughts of killing yourself? N o, 6 . Suicide Behavior Question: Have you ever done anything,started to do anything, or prepared to end your life? N o, I nterpretation: L ow Risk. G AD-7 Screenin. Feeling nervous, anxious, or on edge : , Nearly every day-3. 2 . Not being able to stop or control worrying : , Nearly every day-3. 3 . Worrying too much about different things : , Nearly every day-3. 4 . Trouble sleeping/relaxing : , Several days-1. 5 . Being so restless that it is hard to sit still : , Several days-1.?6. Becoming easily annoyed or irritable : , Several days-1. 7 . Feeling afraid, as if something awful might happen M ore than half the days-2. G AD-7 Score T otal score 1 4 :. I nterpretation: 1 0-14: Moderate Anxiety. S ummary: Substance Use History, Drugs Of Choice O ther Started taking pain pills at age of 14 started using fentanyl in 2017 because pain pills stopped working. In 2016 started using meth. In 2019 client went to penitentiary and remained substance free until 2021 when he began using meth again In 2022 at age 28 client utilized methodone but due to side effects stopped. December 2023 started meth again, lost job when drugs slipped out of pocket at work. Started to hanging out with individuals and got back on fentanyl for past 6 months.. C SSRS Interpretation and Follow Up Plan: CSSRS Interpretation and Follow Up Plan C SSRS Screen documented using SF Y es, R isk Disposition from L ow - No Follow Up Plan Required, F ollow Up Plan N o Follow Up Plan required at this time.. D epression Screening PHQ9: c/o PHQ-2 (2015 Edition). PHQ9 D epression Screening Finding P ositive, F ollow-up Depression W arm hand-off to staff. * Medical History: * Surgical History: * Hospitalization/Major Diagno stic Procedure: * Social History: S ocial Determinants: P RAPARE D ate Completed/Updated: 0 11/18/2024, W hat is your current housing situation? I have housing, A re you worried about losing your housing? N o, W hat is the highest level of school that you have finished? M ore than high school, W hat is your current work situation? 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 Check all that apply I do not have problems meeting my needs, H as lack of transportation kept you from medical appointments, meetings, work or from getting things needed for daily living? N o, H ow often do you see or talk to people that you care about and feel close to? (For example: talking to friends on the phone, visiting friends or family, going to mandaeism or club meetings) M ore than 5 times a week, H ow stressed are you? Stress is when someone feels tense, nervous, anxious, or can\t sleep at night because their mind is troubled V gentry much, I n the past year have you spent more than 2 nights in a row in a long-term, penitentiary, care home center, or juvenile correctional facility? N o, D o you feel physically and emotionally safe where you currently live? Y es, I n the past year, have you been afraid of your partner or ex-partner? N o, A re you a refugee? I choose not to answer this question, W hat country are you from? I choose not to answer this question,?PRAPARE Score: 4 . * Medications: Objective: * Vitals: * Examination: G eneral Examination: C serena is admitting to Detox to move onto MRU unit to work towards goals. Client reports anxiety daily and uses substance to cope with fear of the unknown. Chute Tapper and client discussed what is needed for client to be successful on journey and what client is hoping to get out of experience. Client states he is open to being reflective and using time to work on goals. Assessment: * Assessment: 1. A nxiety - F41.9 2 . O pioid use disorder - F11.99 (Primary) ? Plan: * Treatment: * Procedure Codes: 9 0832 PSYTX PT&/FAMILY 30 MINUTES, Modifiers: GINA T1016 Case [id number] aT [id number] Insurance Application [id number] Housing [id number] Referring to Photocomposition Keyboard Operator * Follow Up: p rn * * Electronically co-signed by Shiela Camargo LCSW, [id number] on 11/18/2024 at 03:35 PM CDT Sign off status: Completed true * Provider: Herb Gustafson Date: 11/18/2024 Generated for Devante penn/Hoa/Hugo on: 0 11/19/2024 10:44 AM CDT History and Physical Notes * HPI (History of Present Illness) Category Sub-Category Detail Notes Category Not es Depression Screening PHQ9 PHQ9 Depres shila Screening Finding: Positive Follow-up Depression: Warm hand-off to [facility] staff Depression Screening PHQ-9 Little inte rest or pleasure in doing things: More than half the days Feeling down, depressed, or hopeless: Mo re than half the days Trouble falling or staying a sleep, or sleeping too much: More than half the days Feeling tired or having little energy: S everal days Poor appetite or overeating: More than h shelter the days Feeling bad about yourself o r that you are a failure, or have let yourself or your family down: More than half the days Trouble concentrating on thi ngs, such as reading the newspaper or watching television: Not at all Moving or speaking so slowly that other people could have noticed; or the opposite, being so fidgety or restless that you have been moving around a lot more than usual: Not at all Thoughts that you would be b huy off or of hurting yourself in some way: Several days (Consider Suicide Assessment Risk) Total Score: 12 Interpretation: Moderate Depression Summary Substance Use Histor y, Drugs Of Choice Other: Started taking pain pills at age of 14 started using fentanyl in 2017 because pain pills stopped working. In 2016 started using meth. In 2019 client went to penitentiary and remained substance free until 2021 when he began using meth again In 2022 at age 28 client utilized methodone but due to side effects stopped. December 2023 started meth again, lost job when drugs slipped out of pocket at work. Started to hanging out with individuals and got back on fentanyl for past 6 months. MATTHEW-7 Screening 1. Feeling nervous, anxious, or on edge :, Nearly every day-3 2. Not being able to stop or control wor rying :, Nearly every day-3 3. Worrying too much about different thi ngs :, Nearly every day-3 4. Trouble sleeping/relaxing :, Several days-1 5. Being so restless that it is hard to sit still :, Several days-1 6. Becoming easily annoyed or irritable :, Several days-1 7. Feeling afraid, as if something awful might happen More than half the days-2 MATTHEW-7 Score Total score: 14 : Interpretation: 10-14: Moderate Anxi ety Screening [place] Suicide Sev erity Rating Scale (LF) Do you want to initiate with: Screener form 1. Wish to be : Have you wished you were or wished you could go to sleep and not wake up?: Yes 2. Suicidal Thoughts: Have you actually had any thoughts of killing yourself?: No 6. Suicide Behavior Question: Have you ever done anything,started to do anything, or prepared to end your life?: No Interpretation:: Low Risk Assessment of Social Determinants of Health:: Has A PRAPARE Been Completed In The Past Year? Has a PRAPARE Been Completed In The Past Year?: Yes Was It Completed Today Using SmartForm?: Yes [facility] Who Is Your Primary Care Provider? Do You Have A PCP?: No wants to Est PCP Date of last physical exam: 11/2024 Do You Have A Psychiatric Provider? Do You Have A Psychiatric Provider?: No wants to Est Psych Do You Have Any Other Professional Supports? Do You Have Any Other Professional Supports?: Yes Drug Court Consent Forms Completed Toney penn Appointment Consent Forms Completed: Consent To Treat CSSRS Interpretation and Follow Up Plan CSSRS Interpretation and Follow Up Plan CSSRS Screen documented using SF: Yes Risk Disposition from SF: Low - No Follo w Up Plan Required Follow Up Plan: No Follow Up Plan requir ed at this time. Examination Category Sub-Category Detail Notes Category Not es General Examination Client i s admitting to Detox to move onto MRU unit to work towards goals. Client reports anxiety daily and uses substance to cope with fear of the unknown. Chute Tapper and client discussed what is needed for client to be successful on journey and what client is hoping to get out of experience. Client states he is open to being reflective and using time to work on goals.
--- OUTSIDE RECORDS SUMMARY | 2024-11-19 10:44 | XMS_ITS | Clinical Summary ---
Author Organization [facility] Address [address] [place] [address] Care Team Providers Care Drying Room Attendant Name Role Phone No, Physician Primary Care Provider [phone] Allergies No known active allergies Medications albuterol [...] days total use 0 0 7 11/14/19 Discontinu ed(Therapy completed) naproxen (NAPROSYN,ALEV E) 500 mg tablet take 1 tablet by oral route 2 times every day with food 0 0 7 11/14/19 Discontinu ed(Therapy completed) dexamethasone (dexamethasone ) 1 mg/mL drops take 0.5 milliliter by oral route 2 times every day 0 0 7 11/14/19 Discontinu ed(Therapy completed) HYDROcodone-ac etaminophen (NORCO) 5-325 mg per tabletIndicati ons:written Rx given to pt at appt today Take 1 tablet by mouth every 6 (six) hours as needed (for pain). 20 tablet 7 11/14/19 Discontinu ed(Therapy completed) Active Problems Problem Noted Date Diagnosed Date Opioid dependence with withdrawal 11/13/2024 Shoulder pain 11/11/2016 Overview (01/27/2017): Shoulder pain Current smoker 11/11/2016 Overview (01/27/2017): Smoker Encounters Date Type Department Care Team Description 11/15/2024 Documentation [facility] Warm Hand Off [facility] [address] [place], [place] [phone] Abi Mtz 11/14/2024 Documentation [facility] Warm Hand Off [facility] [address] [place], [place] [phone] Abi Mtz 11/13/2024 11:56 AM CDT - 11/16/2024 12:57 PM CDT Hospital Encounter [facility] [address] [place] [address] Amy Robles MD Sinha, Chandni, MD Opioid dependence with withdrawal (HCC) (Primary Dx) Discharge Disposition: Left Against Medical Advice 11/13/2024 9:30 AM CDT Lab [address] [address] 11/13/2024 [facility] Enrollment [facility] Warm Hand Off [facility] [address] [place] [address] Brit Dickson 11/11/2024 [facility] Initial Eligibility [facility] Hand Off [facility] [address] [place] [address] Shira Hood from Last 3 Months Medical History Medical History Date Comments Hx [...] on file 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 Gender Identity Not on file Sexual [...] 11/13/2024 12:30 PM CDT Plan of Treatment Health Maintenance Due Date Last Done Comments Colon Cancer Screening-Colonoscopy 1975 Depression Screening 1975 Hepatitis C Screening 1975 Prostate Cancer Screening-PSA 1975 Hepatitis B Screening 11/27/1991 Regular Well Visit/Exam 18-64 11/27/1991 Pneumococcal vaccine <65 (2 of 2 - PCV) 12/06/2019 12/05/2018 Zoster Vaccine (1 of 2) 11/27/2023 Covid-19 Vaccine (4 - season) 2024 08/10/2021, 11/30/2020, 11/02/2020 Influenza Vaccine (#1) 2024 08/23/2017 DTaP/Tdap/Td Vaccine (2 - Td or Tdap) 02/20/2027 Procedures Procedure Name Priority Date/Time Associated Diagnosis [...] MD LAB BLOOD ORDERABLES Final Re sult [facility] Department [place] [address] * (ABNORMAL) Creatine kinase (CK), total (11/15/2024 1:22 PM CDT) CK 443(H) 40 - 300 Units/L Blood 11/15/2024 1:22 PM CDT 11/15/2024 1:40 PM CDT us Amy Robles MD LAB BLOOD ORDERABLES Final Re sult MARIBEL CORRALES ([place]) 1 [facility] Department [place] [address] * (ABNORMAL) Comprehensive metabolic panel (11/15/2024 1:22 [...] classification and Diagnosis of Diabetes Diabetes Care 2021; 46: S19-S40. Current interpretive data was last [...] Final Re sult MARIBEL CORRALES ([place]) 1 [facility] Department [place] [address] * (ABNORMAL) Drugs of Abuse Screen, Urine [...] 2023. Barbiturates, ur Not Detected CutOff 200ng/mL [facility] ([place]) Comment: Interpretive Data - Barbiturates: [...] 2023. Oxycodone, ur Not Detected CutOff 100ng/mL [facility] ([place]) Comment: Interpretive Data - Oxycodone: Samples containing greater than 100 ng/mL oxycodone or other cross-reacting compounds are reported as positive. False positive and false negative results are possible. Confirmatory testing required for definitive results. Current Interpretive Data was last reviewed 2023. Phencyclidine, ur Not Detected CutOff 25 ng/mL [facility] ([place]) Comment: Interpretive Data - Phencyclidine: Samples containing greater than 25 ng/mL phencyclidine or other cross-reacting compounds are reported as positive. False positive and false negative results are possible. Confirmatory testing required for definitive results. Current Interpretive Data was last reviewed 2023. Urine Creatinine 190 mg/dL [facility] ([place]) Comment: Interpretive Data Urine Creatinine: < 10 [...] MD LAB URINE ORDERABLES Final Re sult Performing Organization Address City/[facility]/ZIP Co de Phone Number MARIBEL CORRALES ([facility]ALL[place]ER) 1 [facility] Department [place] [employer] [address] * eGFR (11/13/2024 9:07 AM CDT) eGFR [...] data was last reviewed 2021. Blood 11/13/2024 9:07 AM CDT 11/13/2024 9:34 AM CDT us Amy Robles MD LAB BLOOD ORDERABLES Final Re sult [facility] ([place]) 1 [facility] [place] [address] * CBC without differential (11/13/2024 9:07 AM CDT) WBC 9.2 3.8 - 9.9 K/cumm Hgb 13.9 13.0 - 17.5 g/dL [facility] Hct 41.7 38.9 - 50.3 % [facility] ([place] Plt 328 150 - 400 K/cumm [facility] ([place]) MPV 10.2 9.1 - 12.3 fL [facility] ([place]) RBC 4.65 4.30 - 5.80 M/cumm [facility] ([place]) MCV 89.7 81.3 - 96.4 fL [facility] ([place]) MCH 29.9 27.1 - 33.3 pg [facility] ([place]) MCHC 33.3 32.3 - 35.7 g/dL [facility] ([place]) RDW CV 12.5 11.1 - 14.9 % [facility] ([place] RDW SD 41.2 35.7 - 48.1 fL [facility] ([place] NRBC abs 0.00 0.00 - 0.01 K/cumm [facility] ([place]) Blood 11/13/2024 9:07 AM CDT 11/13/2024 9:34 AM CDT us Amy Robles MD LAB BLOOD ORDERABLES Final Re sult [facility] ([place]) 1 [facility] Department [place] [address] * Comprehensive metabolic panel (11/13/2024 9:07 AM CDT) Pathologist [facility] Sodium 139 135 - 145 mmol/L Potassium, pl 4.2 3.3 - 4.9 mmol/L [facility] ([place] Chloride 105 97 - 110 mmol/L [facility] ([place]) CO2 23 22 - 32 mmol/L [facility] ([place]) Anion gap 11 2 - 15 mmol/L [facility] ([place] BUN 16 6 - 25 mg/dL [facility] ([place]) Creatinine 1.04 0.80 - 1.30 [...] classification and Diagnosis of Diabetes Diabetes Care 2021; 46: S19-S40. Current interpretive data was last [...] MD LAB BLOOD ORDERABLES Final Re sult [facility] ([place]) 1 [facility] Department [place] [address] from Last 3 Months Insurance [facility] Member Subscriber Plan / Payer ( fective 2024-Present) Name:Edmundo Kaminski Relation to Subscriber:Self Name:Edmundo Kaminski Payer ID:[id number] (NAIC) Group ID:Not on file Type:MEDICAID RISK OTHER Address: [address] Advance Directives For more information, please contact: [phone] * Full Code (Latest Code Status on File) Date Activated Date Inactivated Comments 11/13/2024 1:06 PM 11/16/2024 5:03 PM Care Teams Drying Room Attendant Relationship Specialty Start Date End Date No, Physician PCP - General 02/27/17
--- OUTSIDE RECORDS SUMMARY | 2024-11-19 10:44 | XMS_ITS | Continuity of Care Document ---
Author Organization [facility] Address [address] [place] [address] Phone Care Team Providers Care Flagman Name Role Phone Jim Asher MD Unavailable [...] on Encounter OFFICE/OUTPA TIENT VISIT, EST [facility], [address], [place], [id number], [place] tel:[phone] [facility] foot pain (chief complaint) Dietary surveillance and counselingFracture of unspecified bone(s) of foot (except toes), closed [address], [place], [id number] , [place]. tel:[phone] Referring Provider: Jim Asher [address], [place], [id number]. tel:[phone] OFFICE/OUTPA TIENT VISIT, [facility], [address] [facility] [place], [id number], tel:[phone] [facility] foot pain (chief complaint) Dietary surveillance and counselingPain in joint involving ankle and footDECREASED LIBIDO 0 [address], [address], [place], [place], [id number] , [place]. tel:[phone] Referring Provider: Jim Asher, [address] [facility] A, [place], [place], [id number]. tel:[phone] Family History Family Member Type Diagnosis Age At Onset Mother Problem (finding) Hyperlipidemia Father Problem (finding) Diabetes mellitus Mother Problem (finding) Hypertension Father Problem (finding) Hyperlipidemia Father Problem (finding) Hypertension Payers Payer name Insurance type Covered constitution party ID Authoriza tion(s) No Information Social [...] Mental Status Date Cognitive Assessment Orientation - Effie ed to time, place, person, situation.
--- OUTSIDE RECORDS SUMMARY | 2024-11-19 10:44 | XMS_ITS | Encounter Summary ---
Author Organization [facility] Address [address] [place] [address] Care Team Providers Care Hot Head Machine Operator Name Role Phone Unavailable Primary Care Provider Unavailabl e Encounter Details Date Type Department Care Team (Late st Contact Info) Description 02/01/2020 Lab Requisition [facility] [address] [place] [address] Thomas Berger MD Social History Tobacco Use [...] Not detected, Invalid 02/01/2020 10:46 PM CDT [facility] MICROBIOLOGY Microbiology SPECIMEN FROM NASOPHARYNGEAL STRUCTURE / Unknown Collection / Unknown 02/01/2020 1:37 AM CDT 02/01/2020 12:32 PM CDT Narrative [facility] MICROBIOLOGY - 02/01/2020 10:46 PM CDT This Real Time RT-PCR assay was developed and its performance characteristics determined by [facility]biology [facility]. This test has been authorized [...] Thomas Berger MD LAB - MICROBIOLOGY ORDERABLES [facility] MICROBIOLOGY [address] [place] [address], [facility] [phone] documented in this encounter Visit Diagnoses Not on filedocumented in this encounter Additional Health Concerns Infection Onset Date Last Indicated Resolved Time COVID-19 Under Investigation 02/01/2020 02/01/2020 02/01/2020 10:46 PM CDT documented as of this encounter
--- OUTSIDE RECORDS SUMMARY | 2024-11-19 10:44 | XMS_ITS | Encounter Summary ---
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
--- OUTSIDE RECORDS SUMMARY | 2024-11-19 10:44 | XMS_ITS | Clinical Summary ---
Author Organization [facility] Address [address] [place] [address] Care Team Providers Care Telehealth Coordinator Name Role Phone Unavailable Primary Care Provider Unavailabl e Source Comments [facility],non-owned Affiliates and Associated Physician Practices is amultiple site organization consisting of ambulatory clinics and hospital sitesin [place], [place], [place] and [place]. This disclosure is being madepursuant to the Care Everywhere program and may not contain all information available regarding this patient. Last updated 18.[facility] Allergies No known active allergies Medications [...] to complete this topic MENINGOCOCCAL (Group B) VACC INE SHARED DECISION-MAKING Aged Out No longer eligibl e based on patient's age to complete this topic MENINGOCOCCAL GROUPS A/C/Y/W VACCINE Aged Out No longer eligible b ased on patient's age to complete this topic
--- OUTSIDE RECORDS SUMMARY | 2024-11-19 10:45 | XMS_ITS | Clinical Summary ---
Author Organization [facility] Address [address] [place] [address] Care Team Providers Care Gang Hemstitching Machine Operator Name Role Phone Karl Patel MD Unavailable [phone] Henrique Tijerina MD Unavailable Unavailable Jan Lynch MD Unavailable [phone] Cecil Hart Primary Care Provider Allergies Active [...] Department Care Team Description 10/28/2024 2:00 PM OPERATIONS SCHEDULER Urgent Care Visit [facility] [address] [place] [address] Celeste Kimble, SCIENCE ANALYST, HYDROGEN CELL TENDER Abscess of arm, right (Primary Dx) Discharge [...] file Not on file Not on file 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 on file Not on file Not on file Last Filed Vital Signs Vital Sign Reading Time Taken Comments Blood Pressure 164/94 10/28/2024 2:53 PM OPERATIONS SCHEDULER Pulse 85 10/28/2024 2:53 PM OPERATIONS SCHEDULER Temperature 36.5 C (97.7 F) 10/28/2024 2:53 PM OPERATIONS SCHEDULER Respiratory Rate 18 10/28/2024 2:53 PM OPERATIONS SCHEDULER Oxygen Saturation 99% 10/28/2024 2:53 PM OPERATIONS SCHEDULER Inhaled Oxygen Concentration - - Weight 132.9 kg (293 lb) 09/28/2023 10:57 AM OPERATIONS SCHEDULER Height 185.4 cm (6' 1 ) 05/22/2023 [...] this topic Insurance MEDICAID [place] Care Teams Gang Hemstitching Machine Operator Relationship Specialty Start Date End Date Cecil Hart PAC [address] [place] [phone] PCP - General Physician Bench Jeweler 05/19/23 Karl Patel MD [address] [place] [id number] Consulting Physician Orthopaedic Surgery 08/23/17 Henrique Tijerina MD [address] [place] [address] Consulting Physician Addiction Medicine 12/05/18 Jan Lynch MD [address] [facility] [place] [address] Consulting Physician General Surgery 05/15/23
--- OUTSIDE RECORDS SUMMARY | 2024-11-19 10:45 | XMS_ITS ---
Author Organization [facility] Address [address] [place] [address] Care Team Providers Care Transition Lead Name Role Phone Rosita Garces Primary Care Provider REASON FOR VISIT MRU new patient Encounters Encounter Location Date Provider Diagnosis [facility] [address] [place] [address] 11/19/2024 Rosita Garces Plan Of Treatment Next Appt Details Provider Name:Surjit gee, 11/20/2024 08:20:00 AM, [address], [place], [address], Provider Name:Mundo sherwood, 11/21/2024 10:20:00 AM, [address] [place] [address], [phone], Progress Notes * Edmundo AGOSTODOB:1975 (48 yo M)Acc No.[id number]:11/19/2024 UNLOCKED PROGRESS NOTE Progress Notes Patient: Edmundo ANGEL Provider: Matt Garces APRN :1975 A ge:48 Y S ex:Male Date:11/19/2024 Address:[address] [place] [address] [address] , [id number] Subjective: * Chief Complaints: * 1 . MRU new patient. * Medical History: Objective: * Vitals: Assessment: Plan: * Treatment: * * Electronic signature of Yue Garces , [id number] on 11/19/2024 at 10:44 AM CDT Sign off status: Pending * Provider: Matt Garces APRN Date: 0 11/19/2024 Generated for Devante penn/Hoa/Hugo on: 0 11/19/2024 10:44 AM CDT
--- OUTSIDE RECORDS SUMMARY | 2024-11-19 10:45 | XMS_ITS ---
Author Organization [facility] Address [address] [place] [address] Care Team Providers Care Plumbing Manager Name Role Phone Rosita Garces Primary Care Provider Allergies No Known Allergies REASON FOR VISIT MRU physical: Medications Medication SIG (Take, Route, Fr equency, Duration) Notes Start Date End Date Status Lisinopril 10 MG 1 tablet Orally Once a day for 30 days on unit 11/18/2024 Active Cephalexin 500 MG 1 capsule Orally every 6 hrs for 7 days Active Social History Tobacco Use: Social History Observation Description Date Details (start date - stop date) Heavy tobacco s janay NA - NA Tobacco Control (Standard) Question Answer Notes Tobacco use: Heavy tobacco smoker Additional Findings: Tobacco user Heavy cigarett e smoker (20-39 cigs/day) Section Notes: pain pills at age of 14, can nabis, started fentayle 2017 because pain pills stopped working. 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 2019 went to halfway, was clean until 2021 and started doing meth again. started methodone 2022 at a 28 and stopped taking it. Meth was to stop from doing fentayl. december 2023 started meth again, lost job. Started to hanging out with individual and got back on fentayl for past 6 month. Problems Problem Type SNOMED Code ICD Code Onset Dates Problem Status W/U Status Risk Notes Problem Mental disorder caused by drug (797210443) Opioid use disorder (F11.99) Active confirmed Problem Hypertension (64569479) Hypertension (I10) Active confirmed Vital Signs Weight 220.4 lbs 11/18/2024 Height 69 in 11/18/2024 BMI 32.54 kg/m2 11/18/2024 Blood pressure systolic 142 mm Hg 11/19/19 25 Blood pressure diastolic 74 mm Hg 025 Heart Rate 82 /min 11/18/2024 Oximetry 96 % 11/18/2024 Temperature 97.8 degrees Fahrenheit 11/19/19 25 Respiratory Rate 18 /min 11/18/2024 Encounters Encounter Location Date Provider Diagnosis [facility] [place] [address] 11/18/2024 Rsoita Garces Symptoms of urinary tract infection R39.9 ; Adult general medical exam Z00.00 ; Exposure to potential infection Z20.9 ; Opioid use disorder F11.99 and Hypertension I10 Assessments Encounter Date Diagnosis (ICD Code) Assessment Notes Treatment Notes Treatment Clinical Notes Section Notes 11/18/2024 Symptoms of urinary tract infection (ICD-10 - R39.9) 11/18/2024 Adult general medical exam (ICD-10 - Z00.00) 11/18/2024 Exposure to potential infection (ICD-10 - Z20.9) 11/18/2024 Opioid use disorder (ICD-10 - F11.99) 11/18/2024 Hypertension (ICD-10 - I10) 11/18/2024 Other Continue treatment as recommended by [facility] staff. Encouraged patient to obtain routine medical care with patient's own primary care provider or establish as a patient at [facility] if no current primary care provider. Plan Of Treatment Medication Medication Name Sig Start Date Stop Date Notes Lisinopril 10 MG 1 tablet Orally Once a day for 30 days on unit Treatment Notes Assessment Notes Other Continue treatment as recommended by [facility] staff. Encouraged patient to obtain routine medical care with patient's own primary care provider or establish as a patient at [facility] if no current primary care provider. Future Test Test Name Order Date Urinalysis In-House, Routine 11/18/2024 CBC With Differential/Platelet* 11/19/19 25 Hepatitis B Surface Antigen (HBsAg Scree n) 11/18/2024 Hepatitis C Virus Antibody w/Rflx to Yeison ntitative Real-time PCR ([id number]) 11/18/2024 CMP 14 Comprehensive Metabolic Panel* QuantiFERON-TB Gold Plus ([id number]) 2024 12 Panel Urine Drug Screen 11/18/2024 Next Appt Details Follow Up: prn, Reason: Provider Name:Mirandaálvaro Ralphleslie gee, 11/20/2024 08:20:00 AM, [address], [place], [address], Provider Name:Mundo sherwood, 11/21/2024 10:20:00 AM, [address], [address], Progress Notes * Edmundo AGOSTODOB:1975 (48 yo M)Acc No.[id number]:11/18/2024 UNLOCKED PROGRESS NOTE Patient: Edmundo ANGEL Provider: Matt Garces APRN :1975 A ge:48 Y S ex:Male Date:11/18/2024 Address:[address] [place] [address], [id number] Check In:10:51 AM TRANSCRIPT EVALUATOR Subjective: * Chief Complaints: * 1 . MRU physical:. * HPI: D epression Screening: PHQ-9 L ittle interest [...] otal Score 1 2,?Interpretation M oderate Depression. I ntervention D epression Screening Findings Positive, F ollow-Up for Depression P boone is admitted to a [facility] residential unit where their mental health is monitored,Warm handoff to Behavioral Health Staff .. S creening: Kerr Suicide Severity Rating Scale (LF) D o [...] N o, I nterpretation: L ow Risk. C SSRS Interpretation and Follow Up Plan: CSSRS Interpretation and Follow Up Plan C SSRS Screen documented using SF Y es, R isk Disposition from L ow - No Follow Up Plan Required, F ollow Up Plan N o Follow Up Plan required at this time.. P reventative Health and Wellness follow-up: Action Plans for Clinical Quality Measures: A dult BMI and follow-up: O ther (see notes). BMI nutrition discussed, C olorectal Cancer Screening: D iscussed need for colorectal cancer screening. Patient declined., H IV Screening: D iscussed need for HIV screening. Order placed., T obacco Screening and Cessation: O ther (see notes). Tobacco Cessation reviewed. . S woody: Presents for physical as patient is admitted to Residential Unit at [facility]. Arrived on: 11/18/24 Use of: Fentanyl Last use: 2 days prior Via: IV Previous treatment: SMARTS in [facility] 2 years prior Withdrawals symptoms: Denies Medical History: Hep C. W/tx in 2020 or 2021 PCP: Denies Psych Provider: Denies Current medical concerns Denies SI/HI. Currently taking Cephalexin for abscess in bilateral AC area Hx of HTN- used to take Lisinopril- has not taken for a while d/t not having a prescriber Reports CP 2 days prior- will advise staff to notify providers if further episodes. * ROS: B asic ROS: Denies S eizures. D enies S uicidal Thoughts. ? P sych ROS: Constitutional D enies. E yes D enies. E ars/Nose/Mouth/Throat D enies. R espiratory D enies. C ardiovascular R eports, r ecent issue of CP with pain in right arm. G I R eports, c onstipation. G U R eports, d ysuria. M usculoskeletal D enies. N eurological D enies. I ntegumentary R eports, a bscess in both right and left AC, r/t IV drug use. . H ematological/Lymphatic D enies. * Medical History: M edical History Verified. * Family History: F ather: . M other: . 1 brother(s) . 1 son(s) , 1 daughter(s) . .? * Social History: P rimary Social History: L iving Arrangement L iving Arrangement: D ependent Living, L iving with: Zia chaudhari, I s this a supportive environment? Y es. A lcohol Use A lcohol Use Frequency: Never. I llicit Substance Usage I llicit Substance Usage: Y es, I nterested in quitting: Y es, S ubstance Used: C annabis,Methamphetamine Fentanyl --- last usage 2-3 days, F requency Methamphetamine is used: Last use 3-4 days ago, F requency Cannabis is used: Today 11/18/2024. E mployment Status E mployment Status: U nemployed. T obacco Use: T obacco Control (Standard) T obacco use: H eavy tobacco smoker, A dditional Findings: Tobacco user H eavy cigarette smoker (20-39 cigs/day). p ain pills at age of 14, cannabis, started fentayle 2017 because pain pills stopped working. ? 2017 started meth. 2019 went to halfway, was clean until 2021 and started doing meth again. started methodone 2022 at a 28 and stopped taking it. Meth was to stop from doing fentayl. december 2023 started meth again, lost job. Started to hanging out with individual and got back on fentayl for past 6 month. * Medications: T aking Cephalexin 500 MG Capsule 1 capsule Orally every 6 hrs for 7 days, Medication List reviewed and reconciled with the patient * Allergies: N .K.D.A. Objective: * Vitals: I nitials: LL, Wt:220.4, Ht: 69, BMI:32.54, BP:142/74, 2nd BP read:152/90, HR:82, Oxygen sat %:96, Temp:97.8, RR:18, Pain scale:6. * Examination: A ctivity Permissions and Medication Self Administration: Activity Level & Medication Self-Administration Permissions?Activity Level Permitted: T he patient/client may fully take part in physical fitness programming including aerobic, muscular strength, and flexibility training without restriction. .Medication Self-Administration Permissions: M edications may be self-administered by the patient/client under the supervision of approved staff or administered by nursing staff. .. . G eneral Examination: GENERAL APPEARANCE: alert, in no acute distress. HEAD: normocephalic, atraumatic. EYES: BOTH EYES, sclera anicteric, pupils equal, round, reactive to light and accommodation , extraocular movement intact (EOMI). EARS BOTH EARS, normal. NOSE: nares patent. ORAL CAVITY: mucosa moist,edentulous. THROAT: pharynx normal. NECK/THYROID: neck supple , no thyromegaly. SKIN: v arious scabs on bilateral upper and lower extremities- client reports Hx of picking.. HEART: regular rate and rhythm, S1, S2 normal, no S3, S4, no murmurs, rubs, gallops. LUNGS: respirations regular and easy, clear to auscultation bilaterally, no wheezes, rales, rhonchi, clear anteriorly and posteriorly, good air movement.? ABDOMEN: bowel sounds present, soft, nondistended, no masses palpable, no organomegaly mild tenderness in RUQ with palpation. EXTREMITIES: n on pitting edema in right hand. PERIPHERAL PULSES: 2 + radial. NEUROLOGIC: nonfocal, gait normal. PSYCH: appropriate affect. Assessment: * Assessment: 1. A dult general medical exam - Z00.00 (Primary) 2 . S ymptoms of urinary tract infection - R39.9 3 . E xposure to potential infection - Z20.9 ?4. O pioid use disorder - F11.99 5 . H ypertension - I10 ? Plan: * Treatment: Value Reference Range T HC POS * C OC neg * M OP (OPI) POS * A MP POS * M ET POS * B AR neg * B ZO POS * M DMA neg * M TD neg * O XY neg * P CP neg * B UP POS ?LAB: Breathalyzer (Ordered for 11/18/2024) (Collection Date & Time - 11/18/2024) ?LAB: QuantiFERON-TB Gold Plus ([id number]) (Ordered for 11/18/2024) (Collection Date & Time - 11/18/2024) ?LAB: CBC With Differential/Platelet* (Ordered for 11/18/2024) (Collection Date & Time - 11/18/2024) ?LAB: CMP 14 Comprehensive Metabolic Panel* (Ordered for 11/18/2024) (Collection Date & Time - 11/18/2024)2.?Symptoms of urinary tract infection?LAB: Urinalysis In-House, Routine (Ordered for 11/18/2024) (Collection Date & Time - 11/18/2024)* Value Reference Range L eukocytes Neg * N itrite, Urine Neg * U robilinogen,Semi-Qn 0.2 * P rotein 30 * p H 6.0 * O ccult Blood Neg * S pecific [place] >1.030 * K etones Neg * B ilirubin Small * G lucose Neg 3.?Exposure to potential infection?LAB: Hepatitis B Surface Antigen (HBsAg Screen) (Ordered for 11/18/2024) (Collection Date & Time - 11/18/2024) ?LAB: Hepatitis C Virus Antibody w/Rflx to Quantitative Real-time PCR ([id number]) (Ordered for 11/18/2024) (Collection Date & Time - 11/18/2024) 4.?Hypertension? Start Lisinopril Tablet, 10 MG, 1 tablet, Orally, Once a day, 30 days, 30, Refills 3, Notes to Pharmacist: on unit.??5.?Others? Notes:Continue treatment as recommended by [facility] staff.Encouraged patient to obtain routine medical care with patient's own primary care provider or establish as a patient at [facility] if no current primary care provider.?? * Recommended Wellness and Pre vention Guidelines: * S lc abbasi L ast Done N ext Due A ction Taken N ONCOMPLIANT C olorectal cancer screening - 0 11/18/2024 - N ONCOMPLIANT H IV screening - 0 11/18/2024 - * Procedure Codes: 3 008F BODY MASS INDEX DOCD, [address], [place], [address] BEHAV CHNG SMOKING 3-10 MIN * Preventive Medicine: Counseling: C are goal follow-up plan: B IN management provided Y es, A hermann Normal BMI Follow-up L ifestyle education regarding diet. S MOKING: P atient counselled on the dangers of tobacco use and urged to quit. . . * Follow Up: p rn * * Electronic signature of Yue Garces , [id number] on 11/19/2024 at 10:44 AM CDT Sign off status: Pending * Provider: Matt Garces, BLOCK SEALER Date: 11/18/2024 Generated for Devante penn/Hoa/Patyransmitting on: 0 11/19/2024 10:44 AM CDT History and Physical Notes * HPI (History of Present Illness) Category Sub-Category Detail Notes Category Not es Depression Screening PHQ-9 Little inte rest or pleasure in doing things: More than half the days Feeling down, depressed, or hopeless: Mo re than half the days Trouble falling or staying a sleep, or sleeping too much: More than half the days Feeling tired or having little energy: S everal days Poor appetite or overeating: More than h sena the days Feeling bad about yourself o [...] Risk) Total Score: 12 Interpretation: Moderate Depression Intervention Depression Screening Findings: P ositive Follow-Up for Depression: Efren isaac is admitted to a [facility] residential unit where their mental health is monitored,Warm handoff to Behavioral Health Staff . Summary Presents for physical as patient is admitted to Residential Unit at [facility]. Arrived on: 11/18/24 Use of: Fentanyl Last use: 2 days prior Via: IV Previous treatment: SMARTS in [facility] 2 years prior Withdrawals symptoms: Denies Medical History: Hep C. W/tx in 2020 or 2021 PCP: Denies Psych Provider: Denies Current medical concerns Denies SI/HI. Currently taking Cephalexin for abscess in bilateral AC area Hx of HTN- used to take Lisinopril- has not taken for a while d/t not having a prescriber Reports CP 2 days prior- will advise staff to notify providers if further episodes. Screening Kerr Suicide Severity Rating Scale (LF) Do you want to [...] end your life?: No Interpretation:: Low Risk Preventative Health and Wellness follow-up Action Plans for Clinical Quality Measures: Adult BMI and follow-up:: Other (see notes). BMI nutrition discussed . Colorectal Cancer Screening: : Discussed need for colorectal cancer screening. Patient declined. HIV Screening:: Discussed ne ed for HIV screening. Order placed. Tobacco Screening and Cessation:: Other (see notes). Tobacco Cessation reviewed CSSRS Interpretation and Follow Up Plan CSSRS Interpretation and Follow Up Plan CSSRS Screen documented using SF: Yes Risk Disposition from SF: Low - No Follo w Up Plan Required Follow Up Plan: No Follow Up Plan requir ed at this time. Examination Category Sub-Category Detail Notes Category Not es General Examination GENERAL APPEARANCE: alert, in no a cute distress HEAD: normocephalic, atrau matic EYES: BOTH EYES, sclera an icteric, pupils equal, round, reactive to light and accommodation , extraocular movement intact (EOMI) EARS BOTH EARS, normal NOSE: nares patent THROAT: pharynx normal NECK/THYROID: neck supple , no thy romegaly HEART: regular rate and rhy thm, S1, S2 normal, no S3, S4, no murmurs, rubs, gallops LUNGS: respirations regular and easy, clear to auscultation bilaterally, no wheezes, rales, rhonchi, clear anteriorly and posteriorly, good air movement ABDOMEN: bowel sounds present , soft, nondistended, no masses palpable, no organomegaly mild tenderness in RUQ with palpation NEUROLOGIC: nonfocal, gait michelle l SKIN: various scabs on leticia ateral upper and lower extremities- client reports Hx of picking. EXTREMITIES: non pitting edema in right hand PERIPHERAL PULSES: 2+ radial PSYCH: appropriate affect ORAL CAVITY: mucosa moist,edentul ous Activity Permissions and Medication Self Administration Activity Level & Medication Self-Administration Permissions Activity Level Permitted:: The patient/client may fully take part in physical fitness programming including aerobic, muscular strength, and flexibility training without restriction. . . Medication Self-Administrati on Permissions:: Medications may be self- administered by the patient/client under the supervision of approved staff or administered by nursing staff. .
--- OUTSIDE RECORDS SUMMARY | 2024-11-19 10:45 | XMS_ITS | Patient Health Record ---
Author Organization [facility] Address [address] [place] [address] Care Team Providers Care Crab Fisher Name Role Phone Rosita Garces Primary Care Provider [phone] Erma Gustafson Unavailable Allergies No Known Allergies Results Component Value Reference Range Notes Breathalyzer Reviewed date:11/18/2024 12:33:41 PM Interpretation: Performing Lab: Notes/Report: TORIBIO 0.00 12 Panel Urine Drug Screen ( Not yet reviewed by provider) Interpretation: Performing Lab: Notes/Report: THC POS MARCELO neg MOP (OPI) POS AMP POS MET POS BAR neg BZO POS MDMA neg MTD neg OXY neg PCP neg BUP POS Urinalysis In-House, Routine (Not yet reviewed by provider) Interpretation: Performing Lab: Notes/Report: Leukocytes Neg Nitrite, Urine Neg Urobilinogen,Semi-Qn 0.2 Protein 30 pH 6.0 Occult Blood Neg Specific [place] >1.030 Ketones Neg Bilirubin Small Glucose Neg Reason For Referral No Information Medications Medication SIG (Take, Route, Fr equency, Duration) Notes Start Date End Date Status Lisinopril 10 MG 1 tablet Orally Once a day for 30 days on unit 11/18/2024 Active Cephalexin 500 MG 1 capsule Orally every 6 hrs for 7 days Active Social History Tobacco Use: Social History Observation Description Date Details (start date - stop date) Heavy tobacco s moker NA - NA PRAPARE Question Answer Notes Date Completed/Updated: 11/18/2024 What is your current housing situation? I have h ousing Are you worried about losing your housing? No What is the highest level of school that you have finished? More than high school What is your current work situation? Oth erwise unemployed but not seeking work (ex. 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 Stress is when someone feels tense, nervous, anxious, or can\t sleep at night because their mind is troubled Very much In the past year have you sp ent more than 2 nights in a row in a fpc, alf, mcc center, or juvenile correctional facility? No Are you a refugee? I choose not to answer this q uestion What country are you from? I choose not to answe r this question Do you feel physically and e motionally safe where you currently live? Yes In the past year, have you b een afraid of your partner or ex-partner? No PRAPARE Score: 4 Tobacco Control (Standard) Question Answer Notes Tobacco use: Heavy tobacco smoker Additional Findings: Tobacco user Heavy cigarett e smoker (20-39 cigs/day) Section Notes: pain pills at age of 14, can nabis, started fentayle 2017 because pain pills stopped working. 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 2019 went to alf, was clean until 2021 and started doing [...] Problem Status W/U Status Risk Notes Problem Hypertension (80348603) Hypertension (I10) Active confirmed Problem Anxiety (69981289) Anxiety (F41.9) Active confirmed Problem Mental disorder caused by drug (053111344) Opioid use disorder (F11.99) Active confirmed Vital Signs Heart Rate 82 /min 11/18/2024 Temperature 97.8 degrees Fahrenheit 11/18/2024 Respiratory Rate 18 /min 11/18/2024 Oximetry 96 % 11/18/2024 Blood pressure diastolic 74 mm Hg 11/18/2024 Height 69 in 11/18/2024 Blood pressure systolic 142 mm Hg 11/18/2024 Weight 220.4 lbs 11/18/2024 BMI 32.54 kg/m2 11/18/2024 Encounters Encounter Location Date Provider Diagnosis [facility] [address] [place] [address] 11/18/2024 Rosita Garces Symptoms of urinary tract infection R39.9 ; Adult general medical exam Z00.00 ; Exposure to potential infection Z20.9 ; Opioid use disorder F11.99 and Hypertension I10 [facility] [address] [place] [address] 11/18/2024 Erma Gustafson Opioid use disorder F11.99 and Anxiety F41.9 Assessments Encounter Date Diagnosis (ICD Code) Assessment Notes Treatment Notes Treatment Clinical Notes Section Notes 11/18/2024 Anxiety (ICD-10 - F41.9) 11/18/2024 Opioid use disorder (ICD-10 - F11.99) 11/18/2024 Adult general medical exam (ICD-10 - Z00.00) 11/18/2024 Symptoms of urinary tract infection (ICD-10 - R39.9) 11/18/2024 Exposure to potential infection (ICD-10 - Z20.9) 11/18/2024 Opioid use disorder (ICD-10 - F11.99) 11/18/2024 Hypertension (ICD-10 - I10) 11/18/2024 Other Continue treatment as recommended by [facility] staff. Encouraged patient to obtain routine medical care with patient's own primary care provider or establish as a patient at [facility] if no current primary care provider. 11/18/2024 Other Clinician met w ith client to assess needs for residential services. Clinician gathered information regarding historical presentation of mental health and substance use symptoms including withdrawal, HIV Risk assessment, psychiatric hospitalization history and presenting concern. Clinician conducted PHQ9 and CSSRS assessments as well as social drivers of health screening for the purposes of identifying additional service needs. Plan Of Treatment Future Test Test Name Order Date Urinalysis In-House, Routine 11/18/2024 CBC With Differential/Platelet* 11/19/19 25 Hepatitis B Surface Antigen (HBsAg Scree n) 11/18/2024 Hepatitis C Virus Antibody w/Rflx to Yeison ntitative Real-time PCR ([id number]) 11/18/2024 CMP 14 Comprehensive Metabolic Panel* QuantiFERON-TB Gold Plus ([id number]) 2024 12 Panel Urine Drug Screen 11/18/2024 Next Appt Details Provider Name:Surjit gee, 11/20/2024 08:20:00 AM, [address], [place], [address], Provider Name:Mundo sherwood, 11/21/2024 10:20:00 AM, [address], [place], [address], Insurance Providers Payer Name Payer Address Payer Phone Subscriber Number Group Number Insured Name Patient Relationship to Insured Coverage Start Date Coverage End Date [facility] [address] [place] [address] [id number] Edmundo Kaminski Self - patient is the insured 5
[2024-11-19 10:52] LABS: Alanine Aminotransferase 24 U/L (6-50); Albumin Level 4.1 g/dL (3.5-5.1); Alkaline Phosphatase 73 U/L (38-126); Anion Gap 7 mmol/L (4-12); Aspartate Amino Transferase 23 U/L (17-59); Bilirubin,Total 0.3 mg/dL (0.2-1.3); Blood Urea Nitrogen 34 mg/dL (9-20); Calcium 9.2 mg/dL (8.4-10.2); Carbon Dioxide 27 mmol/L (22-30); Chloride 106 mmol/L (98-107); Estimated Glomerular Filt Rate > 60; Glucose 119 mg/dL (65-110); Lipase 59 U/L (23-300); Potassium 4.2 mmol/L (3.4-5.0); Sodium 140 mmol/L (137-145)
[2024-11-19 10:58] LABS: Partial Thromboplastin Time 26.8 Seconds (22.3-36.8)
[2024-11-19 11:04] LABS: Troponin I < 0.012 ng/mL (0.000-0.034)
[2024-11-19 11:15] LABS: Influenza A QL RT-PCR Negative (Negative); Influenza B QL RT-PCR Negative (Negative); RSV RNA, RT-PCR Negative (Negative); SARS-CoV-2 RNA PCR Negative (Negative)
--- NOTE | 2024-11-19 12:45 | ED_ITS ---
HPI - General Adult General Chief complaint: Chest Pain Stated complaint: chest pain x 3 days Time Seen by Provider: 11/19/24 12:02 History of Present Illness HPI narrative: 48-year-old male presents to the emergency department for evaluation for multiple days of right-sided chest pain. Patient does admit to IV drug use of fentanyl and last used on Monday at 7:30 a.m.. Patient states he began having the chest pain on Monday and had been at [facility] and he felt they were not doing anything for his chest pains ultimately he checked out. Patient has been at [facility] since yesterday. Patient does have a healing injection site wound at his right AC. Patient denies any associated shortness of breath denies any prior history of PE or DVT. Related Data Home Medications ?Medication ?Instructions ?Recorded ?Confirmed ?Last Taken ?Type citalopram 40 mg tablet 40 mg PO DAILY 03/30/23 03/30/23 Unknown History hydrochlorothiazide 25 mg tablet 25 mg PO DAILY 03/30/23 03/30/23 Unknown History lisinopril 40 mg tablet 40 mg PO DAILY 03/30/23 03/30/23 Unknown History Allergies Allergy/AdvReac Type Severity Reaction Status Date / Time No Known Allergies Allergy Verified 11/19/24 14:22 Review of Systems 2 Review of Systems: All systems reviewed & are unremarkable except as noted in HPI and below PMFSH Family History Family History Other Diabetes mellitus Family history of arthritis Social History Social History (Updated 11/07/24 @ 15:39 by Daphne Campos APRN) Alcohol intake: current Substance use type: IV drugs Last use: 11/07/24; snorted fentayl Exam 2 Narrative: APPEARANCE: Well appearing, no pain, no distress, well-nourished. HEAD: normocephalic, atraumatic. EYES: PERRLA/EOMI, conjunctivae clear. NOSE: Normal no drainage EARS:TMS clear with good light reflex. THROAT: Pharynx clear, no exudate. NECK: Supple. No adenopathy, no masses. RESPIRATORY: Airway patent, respirations nonlabored. Clear to auscultation bilaterally, no rales, rhonchi, wheezing. CARDIOVASCULAR: Regular rate and rhythm without murmurs rubs or gallops. ABDOMINAL: Soft, nontender, nondistended, normal bowel sounds MUSCULOSKELETAL: Moves all extremities. Strength/ROM intact, No edema, No calf tenderness. NEURO: Alert. Cranial nerves II through XII intact. Good gait. Good coordination SKIN: Warm, dry. Normal Color Course Vital Signs Vital signs: Vital Signs Temperature 97.9 F 11/19/24 09:56 Pulse Rate 56 L 11/19/24 09:56 Respiratory Rate 16 11/19/24 09:56 Blood Pressure 146/98 H 11/19/24 09:56 Pulse Oximetry 100 11/19/24 09:56 Temperature 97.9 F 11/19/24 09:56 Pulse Rate 75 11/19/24 16:07 Respiratory Rate 15 11/19/24 16:07 Blood Pressure 134/88 11/19/24 16:07 Pulse Oximetry 97 11/19/24 16:07 Oxygen Delivery Room Air 11/19/24 12:15 Medical Decision Making MDM Narrative Medical decision making narrative: 48-year-old male presents emergency department for evaluation for multiple days of right-sided chest pain. Patient is currently afebrile with no leukocytosis and hemoglobin of 14.0. Patient had negative serial troponins. INR is 1.0. No acute abnormalities on the patient's CMP. CRP and ESR were normal. No concern for endocarditis. Patient had negative ultrasound of the right upper extremity. Patient was negative for influenza RSV and for COVID and CTA was negative for pulmonary embolism. CT is concern for possible celiac artery occlusion patient has no abdominal pathology. Patient was updated the results of his workup he is comfortable plan for discharge and close follow-up. Differential Diagnosis Differential Diagnosis: Abscess, endocarditis, cardiomyopathy, pulmonary embolism, DVT ACS Vital Signs Vital Signs: Vital Signs Temperature 97.9 F 11/19/24 09:56 Pulse Rate 56 L 11/19/24 09:56 Respiratory Rate 16 11/19/24 09:56 Blood Pressure 146/98 H 11/19/24 09:56 Pulse Oximetry 100 11/19/24 09:56 Temperature 97.9 F 11/19/24 09:56 Pulse Rate 75 11/19/24 16:07 Respiratory Rate 15 11/19/24 16:07 Blood Pressure 134/88 11/19/24 16:07 Pulse Oximetry 97 11/19/24 16:07 Oxygen Delivery Room Air 11/19/24 12:15 Lab Data Lab results reviewed: Yes I reviewed the patient's lab results. 11/19/24 10:19 11/19/24 10:19 Labs: Lab Results 11/19/24 11/19/24 11/19/24 Range/Units 10:14 10:19 10:31 WBC 8.3 (4.5-10.0) K/mm3 RBC 4.65 (4.6-6.20) M/mm3 Hgb 14.0 (14.0-18.0) g/dL Hct 40.9 L (42.0-52.0) % MCV 88.0 (80-100) fl MCH 30.1 (26-34) pg MCHC 34.2 (32-36) g/dl RDW 12.7 (11.5-14.5) % Plt Count 301 (150-375) k/mm3 MPV 10.4 (7.4-10.4) fl Immature Gran % (Auto) 0.2 (0-0.5) % Neut % (Auto) 54.6 (45.5-73.1) % Lymph % (Auto) 18.8 (18.3-44.2) % [place] % (Auto) 6.9 (2.6-8.5) % Eos % (Auto) 18.8 H (0-4.4) % Baso % (Auto) 0.7 (0.2-1.2) % Lymph # (Auto) 1.56 (0.9-3.2) K/mm3 [place] # (Auto) 0.6 (0.1-0.6) K/mm3 Eos # (Auto) 1.6 H (0-0.3) K/mm3 Baso # (Auto) 0.1 (0.0-0.1) K/mm3 Abs Immat Gran (auto) 0.02 (0.00-0.031) K/mm3 Absolute Neuts (auto) 4.5 (1.3-6.7) K/mm3 Absolute Nucleated RBC 0.000 (0.0-0.012) K/mm3 Nucleated RBC % 0.0 (0.0-0.2) % ESR (0-20) mm/hr PT 13.0 (11.1-14.7) Seconds INR 1.0 APTT 26.8 (22.3-36.8) Seconds Sodium 140 (137-145) mmol/L Potassium 4.2 (3.4-5.0) mmol/L Chloride 106 (98-107) mmol/L Carbon Dioxide 27 (22-30) mmol/L Anion Gap 7 (4-12) mmol/L BUN 34 H (9-20) mg/dL Creatinine 1.13 (0.7-1.3) mg/dL Estim Creat Clear Calc Not Reportable Estimated GFR > 60 (59 - ) Glucose 119 H (65-110) mg/dL Calcium 9.2 (8.4-10.2) mg/dL Total Bilirubin 0.3 (0.2-1.3) mg/dL AST 23 (17-59) U/L ALT 24 (6-50) U/L Alkaline Phosphatase 73 (38-126) U/L Troponin I < 0.012 (0.000-0.034) ng/mL C-Reactive Protein 0.7 (<1.0) mg/dL Total Protein 7.0 (6.3-8.2) g/dL Albumin 4.1 (3.5-5.1) g/dL Lipase 59 (23-300) U/L Urine Opiates Screen (Negative) Urine Methadone Screen (Negative) Ur Barbiturates Screen (Negative) Ur Phencyclidine Scrn (Negative) Ur Amphetamine Screen (Negative) U Benzodiazepines Scrn (Negative) Urine Cocaine Screen (Negative) U Cannabinoids Screen (Negative) Influenza A (RT-PCR) Negative (Negative) Influenza B (RT-PCR) Negative (Negative) RSV (RT-PCR) Negative (Negative) SARS-CoV-2 RNA (RT-PCR) Negative (Negative) 11/19/24 11/19/24 11/19/24 Range/Units 12:47 13:34 13:55 WBC (4.5-10.0) K/mm3 RBC (4.6-6.20) M/mm3 Hgb (14.0-18.0) g/dL Hct (42.0-52.0) % MCV (80-100) fl MCH (26-34) pg MCHC (32-36) g/dl RDW (11.5-14.5) % Plt Count (150-375) k/mm3 MPV (7.4-10.4) fl Immature Gran % (Auto) (0-0.5) % Neut % (Auto) (45.5-73.1) % Lymph % (Auto) (18.3-44.2) % [place] % (Auto) (2.6-8.5) % Eos % (Auto) (0-4.4) % Baso % (Auto) (0.2-1.2) % Lymph # (Auto) (0.9-3.2) K/mm3 [place] # (Auto) (0.1-0.6) K/mm3 Eos # (Auto) (0-0.3) K/mm3 Baso # (Auto) (0.0-0.1) K/mm3 Abs Immat Gran (auto) (0.00-0.031) K/mm3 Absolute Neuts (auto) (1.3-6.7) K/mm3 Absolute Nucleated RBC (0.0-0.012) K/mm3 Nucleated RBC % (0.0-0.2) % ESR 15 (0-20) mm/hr PT (11.1-14.7) Seconds INR APTT (22.3-36.8) Seconds Sodium (137-145) mmol/L Potassium (3.4-5.0) mmol/L Chloride (98-107) mmol/L Carbon Dioxide (22-30) mmol/L Anion Gap (4-12) mmol/L BUN (9-20) mg/dL Creatinine (0.7-1.3) mg/dL Estim Creat Clear Calc Estimated GFR (59 - ) Glucose (65-110) mg/dL Calcium (8.4-10.2) mg/dL Total Bilirubin (0.2-1.3) mg/dL AST (17-59) U/L ALT (6-50) U/L Alkaline Phosphatase (38-126) U/L Troponin I < 0.012 (0.000-0.034) ng/mL C-Reactive Protein (<1.0) mg/dL Total Protein (6.3-8.2) g/dL Albumin (3.5-5.1) g/dL Lipase (23-300) U/L Urine Opiates Screen Negative (Negative) Urine Methadone Screen Negative (Negative) Ur Barbiturates Screen Negative (Negative) Ur Phencyclidine Scrn Negative (Negative) Ur Amphetamine Screen Negative (Negative) U Benzodiazepines Scrn Positive A (Negative) Urine Cocaine Screen Negative (Negative) U Cannabinoids Screen Positive A (Negative) Influenza A (RT-PCR) (Negative) Influenza B (RT-PCR) (Negative) RSV (RT-PCR) (Negative) SARS-CoV-2 RNA (RT-PCR) (Negative) Imaging Data Radiologist's impression: Impressions Chest X-Ray 11/19/24 10:30 IMPRESSION: No acute cardiopulmonary pathology. Venous Doppler Study 11/19/24 13:33 IMPRESSION: Negative right upper extremity venous US. No deep vein thrombosis. Chest CTA 11/19/24 14:48 IMPRESSION: 1. No pulmonary embolism. 2. No acute cardiopulmonary pathology. 3. 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 Further evaluation advised. ECG Data EKG #1: EKG Interpretation: normal rate, sinus rhythm, no ectopy, non-specific ST changes, normal QRS and normal QT Discharge Plan Discharge Clinical Impression: Atypical chest pain Patient Disposition: Home, Self-Care Condition: Stable Instructions: Antibiotic Form, Chest Pain (ED) Additional Instructions: Tylenol and ibuprofen for chest wall pain. Have close follow-up with your primary care physician for additional outpatient cardiac testing. If you have any worsening symptoms then please call or return to the emergency department. Patient Language: Faroese Prescriptions: New cyclobenzaprine 10 mg tablet 10 mg PO BID PRN (Reason: muscle spasm) Qty: 14 0RF No Action citalopram 40 mg tablet 40 mg PO DAILY hydrochlorothiazide 25 mg Tablet 25 mg PO DAILY lisinopril 40 mg Tablet 40 mg PO DAILY methylprednisolone [Medrol (Fahad)] 4 mg tablets,dose pack See Rx Instructions PO .COMPLEX Qty: 21 0RF Rx Instructions: orally per package directions baclofen 10 mg tablet 10 mg PO TID PRN (Reason: muscle pain) Qty: 10 0RF cephalexin 500 mg capsule 500 mg PO Q6H 7 Days Qty: 28 0RF doxycycline hyclate 100 mg tablet 100 mg PO BID 7 Days Qty: 14 0RF Follow-up/Referrals: UNKNOWN,DOCTOR [Primary Care Provider] - Quality HEART score for chest pain patients History: slightly suspicious ECG: normal Age: > 45 and < 65 years Risk factors: 1 or 2 risk factors Troponin: < or = to 1x normal limit Heart score: 2
[2024-11-19 13:22] LABS: CRP 0.7 mg/dL (<1.0)
[2024-11-19 13:41] LABS: Erythrocyte Sedimentation Rate 15 mm/hr (0-20)
--- NOTE | 2024-11-19 13:41 | ECG_ITS ---
Test Date: 2024-11-19 13:47:24 Measurements Intervals [place] Rate: 68 P: 54 OK: 171 QRS: 40 QRSD: 86 T: 60 QT: 429 QTc: 456 Interpretive Statements SINUS RHYTHM NORMAL ECG Compared to ECG 11/19/2024 10:14:41 No significant changes Electronically Signed On 11-20-2024 12:09:09 CDT by Tani Nice M.D.
--- OUTSIDE RECORDS SUMMARY | 2024-11-19 13:57 | XMS_ITS | Clinical Summary ---
Author Organization [facility] Address [address] [place] [address] Care Team Providers Care Blast Furnace Checker Name Role Phone Karl Patel MD Unavailable [phone] Henrique Tijerina MD Unavailable Unavailable Jan Lynch [...] Department Care Team Description 10/28/2024 2:[address] MAGISTRATE Urgent Care Visit 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 Not on file Not on file Last Filed Vital Signs Vital Sign Reading Time Taken Comments Blood Pressure 164/94 10/28/2024 2:[address] MAGISTRATE Pulse 85 10/28/2024 2:[address] MAGISTRATE Temperature 36.5 C (97.7 F) 10/28/2024 2:[address] MAGISTRATE Respiratory Rate 18 10/28/2024 2:[address] MAGISTRATE Oxygen Saturation 99% 10/28/2024 2:[address] MAGISTRATE Inhaled Oxygen Concentration - - Weight 132.9 kg (293 lb) 09/28/2023 10:[address] MAGISTRATE Height 185.4 cm (6' 1 ) 05/22/2023 [...] this topic Insurance MEDICAID MOLINA Care Teams Blast Furnace Checker Relationship Specialty Start Date End Date Cecil Hart PAC [id number] [place] [phone] PCP - General Physician Doctor Of Audiology 05/19/23 Karl Patel MD [address] [place] [address] Consulting Physician Orthopaedic Surgery 08/23/17 Henrique Tijerina MD [address] [place] [address] Consulting Physician Addiction Medicine 12/05/18 Jan Lynch MD [address] [facility] [place] [address] Consulting Physician General Surgery 05/15/23
--- OUTSIDE RECORDS SUMMARY | 2024-11-19 13:57 | XMS_ITS | Clinical Summary ---
Author Organization [facility] Address [address] [place] [address] Care Team Providers Care Web Design Instructor Name Role Phone Unavailable Primary Care Provider Unavailabl e Source Comments [facility],non-owned Affiliates and Associated Physician Practices is amultiple site organization consisting of ambulatory clinics and hospital sitesin [place], [place], [place] and [place]. This disclosure is being madepursuant to the Care Everywhere program and may not contain all information available regarding this patient. Last updated 18.[facility] Allergies No known active allergies Medications * [...]
--- OUTSIDE RECORDS SUMMARY | 2024-11-19 13:57 | XMS_ITS | Clinical Summary ---
Author Organization [facility] Address [address] [place] [address] Care Team Providers Care Trailer Sections Assembler Name Role Phone No, Physician Primary Care Provider [phone] Allergies No known active allergies Medications albuterol [...] Type Department Care Team Description 11/15/2024 Documentation [facility] Warm Hand Off Program [address] [place], [place] [phone] Abi Mtz 11/14/2024 Documentation [facility] Warm Hand Off Program [address] [place], [place] [phone] Abi Mtz 11/13/2024 11:56 AM CDT - 11/16/2024 12:57 PM CDT Hospital Encounter [facility] Medical Care [address] [place] [address] Amy Robles MD Sinha, Chandni, MD Opioid dependence with withdrawal (HCC) (Primary Dx) Discharge Disposition: Left Against Medical Advice 11/13/2024 9:30 AM CDT Lab [address] [address] 11/13/2024 [facility] Enrollment [facility] Warm Hand Off Program [address] [place] [address] Brit Dickson 11/11/2024 [facility] Initial Eligibility [facility] Warm Hand Off Program [address] [place] [address] Shira Hood from Last 3 Months Medical [...] on file 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 Gender Identity Not on file Sexual Orientation [...] MD LAB BLOOD ORDERABLES Final Re sult [facility] 1 [facility] Department [place] [address] * (ABNORMAL) Creatine kinase (CK), total (11/15/2024 1:22 PM CDT) CK 443(H) 40 - 300 Units/L Blood 11/15/2024 1:22 PM CDT 11/15/2024 1:40 PM CDT us Amy Robles MD LAB BLOOD ORDERABLES Final Re sult MARIBEL CORRALES (ERENDIRA) 1 [facility] Department [place] [address] * (ABNORMAL) Comprehensive metabolic panel (11/15/2024 1:22 [...] Final Re sult MARIBEL CORRALES (ERENDIRA) 1 [facility] Department [place] [address] * (ABNORMAL) Drugs of Abuse Screen, Urine [...] ORDERABLES Final Re sult Performing Organization Address City/[facility]/ZIP Co de Phone Number MARIBEL CORRALES (HEROD) 1 [facility] Department [place] [address] * eGFR (11/13/2024 9:07 AM CDT) eGFR [...] Final Re sult [facility] ([place]) 1 [facility] Department [place] [address] * CBC without differential (11/13/2024 9:07 AM CDT) WBC 9.2 3.8 - 9.9 K/cumm Hgb 13.9 13.0 - 17.5 g/dL [facility] ([facility]) Hct 41.7 38.9 - 50.3 % [facility] ([place]) Plt 328 150 - 400 K/cumm [facility] ([place]) MPV 10.2 9.1 - 12.3 fL [facility] ([place]) RBC 4.65 4.30 - 5.80 M/cumm [facility] ([place]) MCV 89.7 81.3 - 96.4 fL [facility] ([place]) MCH 29.9 27.1 - 33.3 pg [facility] ([place]) MCHC 33.3 32.3 - 35.7 g/dL [facility] ([place]) RDW CV 12.5 11.1 - 14.9 % [facility] ([place]) RDW SD 41.2 35.7 - 48.1 fL [facility] ([place]) NRBC abs 0.00 0.00 - 0.01 K/cumm [facility] ([place]) Blood 11/13/2024 9:07 AM CDT 11/13/2024 9:34 AM CDT us Amy Robles MD LAB BLOOD ORDERABLES Final Re sult [facility] ([place]) 1 [facility] Department [place] [address] * Comprehensive metabolic panel (11/13/2024 9:07 AM CDT) Pathologist [facility] Sodium 139 135 - 145 mmol/L Potassium, pl 4.2 3.3 - 4.9 mmol/L [facility] ([place]) Chloride 105 97 - 110 mmol/L [facility] ([facility]) CO2 23 22 - 32 mmol/L [facility] ([place]) Anion gap 11 2 - 15 mmol/L [facility] ([place]) BUN 16 6 - 25 [...] MD LAB BLOOD ORDERABLES Final Re sult [facility] ([place]) 1 [facility] Department [place] [address] from Last [address] [facility] Member Subscriber Plan / Payer ( fective 2024-Present) Name:Edmundo Kaminski Relation to Subscriber:Self Name:Edmundo Kaminski Payer ID:[id number] (NAIC) Group ID:Not on file Type:MEDICAID RISK OTHER Address: [address] Advance Directives For more information, please contact: [phone] * Full Code (Latest Code Status on File) Date Activated Date Inactivated Comments 11/13/2024 1:06 PM 11/16/2024 5:03 PM Care Teams Trailer Sections Assembler Relationship Specialty Start Date End Date No, Physician PCP - General 02/27/17
--- OUTSIDE RECORDS SUMMARY | 2024-11-19 13:57 | XMS_ITS | Continuity of Care Document ---
Author Organization [facility] Address [address] [facility] [place] [address] Phone Care Team Providers Care Client Support Administrator Name Role Phone Jim Asher MD [...] Copied on Encounter OFFICE/OUTPA TIENT VISIT, EST [facility], [facility] [place], [id number], [place] tel:[phone] [facility] foot pain (chief complaint) Dietary surveillance and counselingFracture of unspecified bone(s) of foot (except toes), closed [address] [place], [id number] , [place]. tel:[phone] Referring Provider: Jim Asher [address] [place], [place], [id number]. tel:[phone] OFFICE/OUTPA TIENT VISIT, [facility], [address] [place], [id number], tel:[phone] [facility] foot pain (chief complaint) Dietary surveillance and counselingPain in joint involving ankle and footDECREASED LIBIDO 0 [address]. [address], [place], [place], [id number] , [place]. tel:[phone] Referring Provider: Jim Asher, [address] [facility], [place], [place], [id number]. tel:[phone] Family History Family Member Type Diagnosis Age [...] Mental Status Date Cognitive Assessment Orientation - [place] ed to time, place, person, situation.
--- OUTSIDE RECORDS SUMMARY | 2024-11-19 13:57 | XMS_ITS | Encounter Summary ---
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
--- OUTSIDE RECORDS SUMMARY | 2024-11-19 13:57 | XMS_ITS | Encounter Summary ---
Author Organization [facility] Address [address] [facility] [place] [address] Care Team Providers Care Dental Receptionist Name Role Phone Unavailable Primary Care Provider Unavailabl e Encounter Details Date Type Department Care Team (Late st Contact Info) Description 02/01/2020 Lab Requisition [facility] [address] [place] [address] Thomas Berger MD Social History Tobacco Use [...] Not detected, Invalid 02/01/2020 10:46 PM CDT [facility] Microbiology SPECIMEN FROM NASOPHARYNGEAL STRUCTURE / Unknown Collection / Unknown 02/01/2020 1:37 AM CDT 02/01/2020 12:32 PM CDT Narrative [facility] - 02/01/2020 10:46 PM CDT This Real Time RT-PCR assay was developed and its performance characteristics determined by [facility]. This test has been authorized [...] Thomas Berger MD LAB - MICROBIOLOGY ORDERABLES [facility] [address] [place] [address], [facility] [phone] documented in this encounter Visit Diagnoses Not on filedocumented in this encounter Additional Health Concerns Infection Onset Date Last Indicated Resolved Time COVID-19 Under Investigation 02/01/2020 02/01/2020 02/01/2020 10:46 PM CDT documented as of this encounter
--- OUTSIDE RECORDS SUMMARY | 2024-11-19 13:57 | XMS_ITS | Referral Summary ---
Author Organization [facility] Address [address] [place] [address] Care Team Providers Care Inspector Fuel Hose Name Role Phone No, Physician Primary Care Provider [phone] Encounters Date Type Department Care Team Description 11/13/2024 11:56 AM CDT - 11/16/2024 12:57 PM CDT Hospital Encounter [facility] [address] [place] [id number] Amy Robles MD Sinha, Chandni, MD Opioid dependence with withdrawal (HCC) (Primary Dx) Discharge Disposition: Left Against Medical Advice 11/15/2024 Documentation [facility] Warm Hand Off Program [address] [place] [address] Smith Abi ELaurel 11/14/2024 Documentation [facility] Warm Hand Off Program [address] [place] [address] Smith Abi ELaurel 11/13/2024 [facility] Enrollment [facility] Warm Hand Off Program [address] [place], [place] [phone] Brit Dickson 11/13/2024 9:30 AM CDT Lab [address] [address] 11/11/2024 [facility] Initial Eligibility [facility] Warm Hand Off Program [address] [place], [place] [phone] Shira Hood from Last 3 Months Allergies [...] on file 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 Gender Identity Not on file Sexual Orientation [...] Final Re sult [facility] ([place]) [address] [facility] [place] [address] * (ABNORMAL) Creatine kinase (CK), total (11/15/2024 1:22 PM CDT) CK 443(H) 40 - 300 Units/L Blood 11/15/2024 1:22 PM CDT 11/15/2024 1:40 PM CDT us Amy Robles MD LAB BLOOD ORDERABLES Final Re sult [facility] ([place]) 1 [facility] [place] [address] * (ABNORMAL) Comprehensive metabolic panel (11/15/2024 1:22 [...] MD LAB BLOOD ORDERABLES Final Re sult [facility] 1 [facility] [place] [address] * (ABNORMAL) Drugs of Abuse Screen, Urine [...] 2023. Urine Creatinine 190 mg/dL [facility]RAL[facility] ([place]) Comment: Interpretive Data Urine Creatinine: < [...] Final Re sult [facility] ([place]) 1 [facility] [place] [address] * eGFR (11/13/2024 9:07 AM CDT) eGFR [...] MD LAB BLOOD ORDERABLES Final Re sult [facility] ([place]) 1 [facility] Department of Laboratories [place], [place] [id number] * CBC without differential (11/13/2024 9:07 AM [...] RDW SD 41.2 35.7 - 48.1 fL [facility] ([place]) NRBC abs 0.00 0.00 - 0.01 K/cumm [facility] ([place]) Blood 11/13/2024 9:07 AM CDT 11/13/2024 9:34 AM CDT Amy Robles MD LAB BLOOD ORDERABLES Final Re sult [facility] ([place]) 1 [facility] [place] [address] * Comprehensive metabolic panel (11/13/2024 9:07 AM CDT) Sodium 139 135 - 145 mmol/L Potassium, pl 4.2 3.3 - 4.9 mmol/L [facility] ([place]) Chloride 105 97 - 110 mmol/L [facility] ([place]) CO2 23 22 - 32 mmol/L [facility] ([place]) Anion gap 11 2 - 15 mmol/L [facility] ([place]) BUN 16 6 - 25 mg/dL [facility] ([place]) Creatinine 1.04 0.80 - 1.30 [...] Final Re sult [facility] ([place]) 1 [facility] [place] [address] from Last 3 Months Insurance [facility] Knowledge Adventure [facility] Advance Directives For more information, please contact: [phone] * Full Code (Latest Code Status on File) Date Activated Date Inactivated Comments 11/13/2024 1:06 PM 11/16/2024 5:03 PM Care Teams Inspector Fuel Hose Relationship Specialty Start Date End Date No, Physician PCP - General 02/27/17
[2024-11-19 14:03] LABS: Troponin I < 0.012 ng/mL (0.000-0.034)
[2024-11-19] MEDS: KETOROLAC 30 MG/ML VIAL (*BKC) IV PUSH (14:23)
[2024-11-19 14:34] LABS: Amphetamine Screen Urine Negative (Negative); Barbiturate Screen Urine Negative (Negative); Benzodiazepines Screen Urine Positive (Negative); Cannabinoid Screen Urine Positive (Negative); Cocaine Screen Urine Negative (Negative); Methadone Screen Urine Negative (Negative); Opiate Screen Urine Negative (Negative); Phencyclidine Screen Urine Negative (Negative)
== END 2024-11-19 16:08 | disposition home or self-care (01) ==
PROVIDERS: Physician Assistant; Student in an Organized Health Care Education/Training Program; Emergency Provider Emergency Medicine
DX: R07.89 Other chest pain (principal); Z20.822 Contact with and (suspected) exposure to COVID-19; F11.90 Opioid use, unspecified, uncomplicated; Z79.899 Other long term (current) drug therapy; R93.5 Abnormal findings on diagnostic imaging of other abdominal regions, including retroperitoneum
CPT/HCPCS: 36415; 71046; 71275; 80053; 80307; 83690; 84484; 85025; 85610; 85652; 85730; 86140; 87637; 93005; 93971; 96374; 99284; J1885; Q9967